=== PATIENT | male | born 1935 | race Caucasian/White ===

== ENCOUNTER 2017-02-14 11:12 | Inpatient (IN) | payer MEDICARE, OTHER ==
--- NOTE | 2017-02-14 11:26 | EDPHY ---
H & P Time Seen by Provider: 02/14/17 11:22 HPI/ROS: CHIEF COMPLAINT: Shortness of breath HISTORY OF PRESENT ILLNESS: 81-year-old male with history of congestive heart failure presents with shortness of breath. Gradually increasing shortness of breath over the past 2 weeks. The shortness of breath increases with exertion and with supine positioning. Associated with nocturia. He is now short of breath with walking from his bed to his bathroom. No chest pain or chest pressure. 5 weeks ago his medications were changed and he is now taking losartan a baby aspirin and Coreg. No change in leg swelling. 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 Florence Smoking Status: Current every day smoker Physical Exam: General Appearance: Alert, pleasant, oxygen saturation 95% on 5 L by nasal cannula Eyes: Pupils equal and round, no conjunctival pallor or injection ENT, Mouth: Mucous membranes moist, tongue dark discoloration Neck: Normal inspection Respiratory: tachypneic, rales at the bases Cardiovascular: Regular rate and rhythm, occasional ectopic beat Gastrointestinal: Abdomen is soft and nontender Neurological: A&O, nonfocal exam Skin: Warm and dry, no rash Extremities: Nontender, no pedal edema Psychiatric: Mood and affect normal Constitutional: Initial Vital Signs Temperature (C) 36.6 C 02/14/17 11:15 Heart Rate 88 02/14/17 11:15 Respiratory Rate 16 02/14/17 11:15 Blood Pressure 149/95 H 02/14/17 11:15 O2 Sat (%) 79 L 02/14/17 11:15 O2 Delivery Mode Nasal Cannula O2 (L/minute) 4 Allergies/Adverse Reactions: No Known Allergies Allergy (Verified 02/14/17 11:38) Home Medications: Medication Instructions Recorded Aspirin [Aspirin 81mg (*)] 81 mg PO DAILY #0 tab 06/13/14 Carvedilol [Coreg (*)] 3.125 mg PO BIDMEAL #60 tab 06/13/14 Losartan Potassium [Cozaar 50 mg 50 mg PO DAILY #30 tab 06/13/14 (*)] Ibuprofen [Motrin (*)] 200 mg PO Q4-6PRN PRN 02/14/17 Omeprazole [Prilosec 20 mg] 20 mg PO DAILY 02/14/17 Medical Decision Making - Diagnostics EKG Interpretation: EKG interpreted by me reveals normal sinus rhythm, rate 90, left bundle branch block, PVC. Imaging Results: Imaging Impressions Chest X-Ray 02/14/17 11:39 Impression: 1. Mild fluid overload suspected. 2. Calcified bilateral pleural plaques. ED Course/Re-evaluation: This patient presents with severe hypoxia and shortness of breath, secondary to pulmonary edema. Old records reviewed. Prior admission in 2013: congestive heart failure with an ejection fraction of 20%. Chest x-ray reveals pulmonary edema. Lasix 40 mg IV given for acute exacerbation of CHF. There is no evidence of pneumonia or pulmonary embolism on history or physical exam. He also has a slightly elevated troponin, in the indeterminate range. EKG reveals a left bundle branch block and there is no evidence of ischemia. He remained fairly asymptomatic after being placed on oxygen. The hospitalist service was consulted for admission. He will be admitted to telemetry for acute exacerbation of congestive heart failure. Differential Diagnosis: Differential diagnosis includes though it is not limited to pneumonia, pneumothorax, pulmonary embolism, aortic dissection, pericarditis, acute coronary syndrome. - Data Points Laboratory Results: Laboratory Results 02/14/17 11:40 02/14/17 11:40 02/14/17 02/14/17 02/14/17 11:40 11:40 11:30 WBC 11.37 10^3/uL H 10^3/uL (3.80-9.50) RBC 4.56 10^6/uL 10^6/uL (4.40-6.38) Hgb 16.0 g/dL g/dL (13.7-17.5) Hct 45.8 % % (40.0-51.0) MCV 100.4 fL H fL (81.5-99.8) MCH 35.1 pg H pg (27.9-34.1) MCHC 34.9 g/dL g/dL (32.4-36.7) RDW 12.5 % % (11.5-15.2) Plt Count 338 10^3/uL 10^3/uL (150-400) MPV 9.5 fL fL (8.7-11.7) Neut % (Auto) 71.0 % % (39.3-74.2) Lymph % (Auto) 15.1 % % (15.0-45.0) [place] % (Auto) 11.2 % % (4.5-13.0) Eos % (Auto) 1.7 % % (0.6-7.6) Baso % (Auto) 0.6 % % (0.3-1.7) Nucleat RBC Rel Count 0.0 % % (0.0-0.2) Absolute Neuts (auto) 8.07 10^3/uL H 10^3/uL (1.70-6.50) Absolute Lymphs (auto) 1.72 10^3/uL 10^3/uL (1.00-3.00) Absolute Monos (auto) 1.27 10^3/uL H 10^3/uL (0.30-0.80) Absolute Eos (auto) 0.19 10^3/uL 10^3/uL (0.03-0.40) Absolute Basos (auto) 0.07 10^3/uL 10^3/uL (0.02-0.10) Absolute Nucleated RBC 0.00 10^3/uL 10^3/uL (0-0.01) Immature Gran % 0.4 % % (0.0-1.1) Immature Gran # 0.05 10^3/uL 10^3/uL (0.00-0.10) Sodium 147 mEq/L H mEq/L (134-144) Potassium 4.4 mEq/L mEq/L (3.5-5.2) Chloride 106 mEq/L mEq/L (97-110) Carbon Dioxide 26 mEq/l mEq/l (22-31) Anion Gap 15 mEq/L mEq/L (8-16) BUN 34 mg/dL H mg/dL (7-23) Creatinine 1.3 mg/dL mg/dL (0.7-1.3) Estimated GFR 53 Glucose 112 mg/dL H mg/dL (70-100) Calcium 9.4 mg/dL mg/dL (8.5-10.4) Phosphorus 4.0 mg/dL mg/dL (2.5-4.5) Magnesium 1.8 mg/dL mg/dL (1.6-2.3) Total Bilirubin 0.8 mg/dL mg/dL (0.1-1.4) Conjugated Bilirubin 0.3 mg/dL mg/dL (0.0-0.5) Unconjugated Bilirubin 0.5 mg/dL mg/dL (0.0-1.1) AST 26 IU/L IU/L (17-59) ALT 31 IU/L IU/L (21-72) Alkaline Phosphatase 96 IU/L IU/L (38-126) Troponin I 0.063 ng/mL H ng/mL (0.000-0.034) NT-Pro-B Natriuret Pep 7060 pg/mL H pg/mL (0-450) Total Protein 7.5 g/dL g/dL (6.3-8.2) Albumin 3.9 g/dL g/dL (3.5-5.0) Medications Given: Discontinued Medications Furosemide (Lasix Injection) 40 mg IVP EDNOW ONE Stop: 02/14/17 12:22 Last Admin: 02/14/17 12:34 Dose: 40 mg Departure - [facility] Clinical Impression: Acute exacerbation of congestive heart failure Qualifiers: Congestive heart failure type: systolic Qualified Code(s): I50.23 - Acute on chronic systolic (congestive) heart failure Condition: Fair
--- NOTE | 2017-02-14 11:29 | CPEKG ---
Heart Rate: 90 RR Interval: 667 P-R Interval: 208 QRSD Interval: 130 QT Interval: 392 QTC Interval: 480 P [place]: 51 QRS [place]: -11 T Wave [place]: 145 EKG Severity - ABNORMAL ECG - EKG Impression: SINUS RHYTHM EKG Impression: VENTRICULAR PREMATURE COMPLEX EKG Impression: LEFT BUNDLE BRANCH BLOCK Electronically Signed By: Nehal Arizmendi 14-Feb-2017 14:11:36
[2017-02-14 11:46] LABS: % IMMATURE GRANULYOCYTES 0.4 % (0.0-1.1); ABSOLUTE IMMATURE GRANULOCYTES 0.05 10^3/uL (0.00-0.10); ADD DIFF? NO; ADD MORPH? NO; ADD SCAN? NO; ATYPICAL LYMPHOCYTE FLAG 10 (0-99); FRAGMENT RBC FLAG 0 (0-99); HEMATOCRIT 45.8 % (40.0-51.0); LEFT SHIFT FLG 0 (0-99); LIPEMIA HEMOLYSIS FLAG 90 (0-99); MEAN CELL HEMOGLOBIN 35.1 pg (27.9-34.1); MEAN CELL HEMOGLOBIN CONCENTR. 34.9 g/dL (32.4-36.7); MEAN CELL VOLUME 100.4 fL (81.5-99.8); MEAN PLATELET VOLUME 9.5 fL (8.7-11.7); PLATELET CLUMPS FLAG 10 (0-99); PLATELET COUNT 338 10^3/uL (150-400); RED BLOOD CELL COUNT 4.56 10^6/uL (4.40-6.38); RED CELL DISTRIBUTION WIDTH 12.5 % (11.5-15.2)
[2017-02-14 11:56] LABS: ANION GAP 15 mEq/L (8-16); CALCIUM 9.4 mg/dL (8.5-10.4); CARBON DIOXIDE 26 mEq/l (22-31); CHLORIDE 106 mEq/L (97-110); CREATININE 1.3 mg/dL (0.7-1.3); GLOMERULAR FILTRATION RATE 53; GLUCOSE 112 mg/dL (70-100); POTASSIUM 4.4 mEq/L (3.5-5.2); SODIUM 147 mEq/L (134-144)
[2017-02-14 12:07] LABS: TROPONIN I 0.063 ng/mL (0.000-0.034)
[2017-02-14] MEDS ORDERED: FUROSEMIDE 40 MG/4 ML VIAL IVP ONE (12:21)
[2017-02-14] MEDS ORDERED: ONDANSETRON 4 MG/2 ML VIAL IVP PRN (13:06)
[2017-02-14] MEDS ORDERED: ACETAMINOPHEN 325 MG TAB PO PRN (13:06)
[2017-02-14] MEDS ORDERED: ONDANSETRON DISINTEGRATING 4 MG TAB PO PRN (13:06)
--- NOTE | 2017-02-14 13:41 | ASMTCASEMG ---
Living Arrangements What is your living Answers: Alone arrangement? Who do you live with? Type Of Residence What kind of residence do Answers: Apartment you live in? Stairs in Home Answers: No Environment Case Management Evaluation Functional: Able to Answers: No return Home with Prior Level of Function/Care Functional: ADL / IADL Answers: Chronic Illness Performance Deficits Due to: Financial Needs Answers: Inability to Pay for Needed Care/Meds/Equipment Under-insured Discharge Plan Comments Coordination Status Comments Notes: The pt is an 81- year old male with a history of congestive heart failure. He presented in the ED with shortness of breath. Pt. was friendly and cooperative but struggled to speak. He is accompanied by his son Jay. Jay reported that the pt. lives alone in an apartment with no stairs. He is very routine oriented and he uses his walker to walk 8 minutes to the local bar every day. Jay reported that he has friends at the bar and there is an arrangement for him to have only two drinks and something to eat during the day. He indicated that the routine has helped to significantly reduce the pt.s alcohol use over the last 12 months. Jay expressed concern about payment for the inpatient stay and treatment; the pt. is in the [place] on a [place] card and he does not have insurance. The insurance in the system is not valid. The pt. does not use community resources but is open to home assistance if need be and if insurance can be acquired. Pt. services informed of the situation and spoke the pt. and his son to assist with next steps. MARIO LOPEZ CM to follow. Date Signed: 02/14/2017 01:40 PM Electronically Signed By:Deborah Pro LCSW
[2017-02-14] MEDS ORDERED: LORazepam 1 MG TAB PO PRN (14:09)
[2017-02-14 14:22] LABS: ALBUMIN 3.9 g/dL (3.5-5.0); BILIRUBIN,TOTAL 0.8 mg/dL (0.1-1.4); BILIRUBIN-CONJUGATED 0.3 mg/dL (0.0-0.5); BILIRUBIN-UNCONJUGATED 0.5 mg/dL (0.0-1.1); MAGNESIUM 1.8 mg/dL (1.6-2.3); TOTAL PROTEIN 7.5 g/dL (6.3-8.2)
[2017-02-14] MEDS ORDERED: NICOTINE 14 MG/24 HR PATCH TD SCH (14:45)
--- NOTE | 2017-02-14 15:09 | GHP ---
[f rep st] HISTORY AND PHYSICAL DATE OF ADMISSION: 02/14/2017 CHIEF COMPLAINT: Hypoxia, CHF exacerbation. HISTORY OF PRESENT ILLNESS: An 81-year-old male with history of nonischemic cardiomyopathy, alcohol dependence, left bundle branch block, and prostate cancer, presenting with shortness of breath. Part of history is obtained from his son, who is accompanying patient at bedside. Patient last saw Cardiology 5 weeks ago, and was doing fairly well. Over the last 5 weeks, he has noticed increased shortness of breath, specifically with exertion. He can barely walk to the restroom now, with having to catch his breath. Uses 2 pillows at baseline; this has not changed. Positive PND, difficulty sleeping. Has had mild swelling in his legs and his abdomen. Per his son, he has noticed that his chest has been heaving with breathing, even at rest over the past week. He has put on 28 pounds in the last 18 months. Patient denies chest pain. No fevers, chills, or sweats. Has a chronic cough that is nonproductive. Still smoking cigarettes. No nausea, vomiting, diarrhea. Intermittent hot flashes. Drinks 2 glasses of wine a day. 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 Florence. REVIEW OF SYSTEMS: I completed a 10-point review of systems. Negative, except as noted in HPI. PAST MEDICAL HISTORY: 1. Nonischemic cardiomyopathy. Echocardiogram 06/03/2014 shows an EF of 25%. Catheterization, 2014, shows no CAD. 2. Left bundle branch block. 3. PUD. 4. Hiatal hernia. 5. DJD. 6. Prostate cancer, status post XRT. 7. Alcohol dependence. 8. Tobacco abuse. 9. Hypertension. 10. TIA. PAST SURGICAL HISTORY: Cataract, basal cell cancer removal. SOCIAL HISTORY: Lives in an apartment here in [place]. His son manages his finances. Drinks 2 glasses of wine. Per son, he was a heavy drinker previously , and he does monitor the amount of alcohol he drinks now. He has smoked most of his life, now smoking 7-8 cigarettes a day. Does smoke a pipe. FAMILY HISTORY: Mother with diabetes. Father age 59 with heart disease. HOME MEDICATIONS: Cozaar 50 mg daily, Coreg 3.125 mg b.i.d., aspirin 81 mg, omeprazole 20 mg daily, ibuprofen as needed. PHYSICAL EXAMINATION: VITAL SIGNS: Temperature 36.6, blood pressure 149/95, heart rate is in the 80s, respirations 16, 79% on room air, 95% on 4 L. GENERAL : Lying in bed, no acute distress. HEENT: PERRLA. EOMI. Jamal face. CV: Regular rate and rhythm. +1 edema, ankles. JVD elevated to mandible. LUNGS: Decreased breath sounds at bases. Crackles bilaterally. ABDOMEN: Mildly distended, soft, nontender, nondistended. Positive bowel sounds. : No Schneider. MUSCULOSKELETAL: 5/5 upper and lower extremity strength. NEURO: 2 through 12 intact. PSYCH: Alert and oriented x3. LABORATORY DATA: WBC is 11, hemoglobin 16, hematocrit 45, platelets 338, MCV is 100. Sodium 147, potassium 4.4, chloride 106, carbon dioxide 26, BUN 16, creatinine 1.3, baseline is 0.9, calcium 9.4. Phos and magnesium are pending. LFTs pending. Troponin 0.063. BNP is 7060. EKG was personally reviewed by me. Left bundle branch block, which is old. Chest x-ray was personally reviewed by me. Diffuse, bilateral pulmonary edema. ASSESSMENT AND PLAN: 1. Acute systolic heart failure exacerbation: evidence of volume overload on exam as well as BNP and chest x-ray. Check echocardiogram. Received IV Lasix in the emergency room; will continue this. We will contact Cardiology; is a patient of Dr. Florence. Low-sodium diet. Monitor I's and O's. Continue low- dose Coreg and aspirin, ARB. 2. History of prostate cancer, status post radiation. 3. Peptic ulcer disease. Continue Prilosec. 4. Alcohol dependence. Drinks 2 drinks a night. We will place on CIWA. 5. Tobacco abuse. Nicotine patch. 6. JOSE: cardiorenal. Monitor with diuresis 7. Indeterminate trop: no CP. Likely due to heart failure 8. NI-CMD: due to etoh. Plan as above. 6. Diet: Cardiac, low sodium. 7. Deep venous thrombosis prophylaxis with Lovenox. 8. Disposition: Patient warrants inpatient admission, given acute systolic heart failure exacerbation, warranting intravenous diuresis, electrolyte monitoring, and telemetry. /[id number]/MODL MTDD
--- NOTE | 2017-02-14 15:56 | PDMN ---
Medical Necessity Medical necessity: est los>2m for acute CHF exacerbation, warranting IV diuresis , electrolyte monitoring, tele and CIWA for etoh dependence; hxPUD, prostate CA ; per order and H&P 02/14/17
--- NOTE | 2017-02-14 16:41 | ECHO ---
[email or web address] [address] [address] Main: [phone] Fax: Transthoracic Echocardiogram Name: CELIA BOBO MR#: [id number] Study Date: 02/14/2017 Study Time: 02:32 PM Date of : 1935 Age: 81 year(s) Height: 177.8 cm (70 in.) Weight: 88 kg (194 lb.) BSA: 2.06 m2 Gender: Male Examination: Echo Indication: Hypoxia, Volume Overload, NI-CDM Image Quality: Contrast: Requested by: Katelyn Perez BP: 149 mmHg/88 mmHg Heart Rate: Rhythm: Indication: Hypoxia, Volume Overload, NI-CDM Procedure Staff Hot Strip Finisher: Roman Moses Reading Physician: Jt Florence Requesting Provider: Measurements: Chambers Valvular Assessment AV/MV Valvular Assessment TV/PV Normal Normal Normal Name Value Range Name Value Range Name Value Range Ao Monse (MM): 3.7 cm (2.2 cm-3.7 AV Vmax: 1.33 m/s (1 m/s-1.7 PV Vmax: 0.65 m/s (0.6 m/s-0.9 cm) m/s) m/s) IVSd (2D): 1.2 cm (0.6 cm-1.1 AV maxP mmHg ( - ) PV PGmax: 2 mmHg ( - ) cm) LVOT Vmax: 0.65 m/s (0.7 m/s-1.1 LVDd (2D): 4.9 cm (4.2 cm-5.9 m/s) cm) MV E Vmax: 0.40 m/s ( - ) LVDs (2D): 4.0 cm (2.1 cm-4 MV A Vmax: 0.85 m/s ( - ) cm) MV E/A: 0.47 ( - ) LVPWd (2D): 1.3 cm (0.6 cm-1 cm) LVEF (MM): 35 (>=55 %) EF Range: 35-40 % Continued Measurements: Chambers Name Value LADs Lon.0 cm LA Area: 22.1 cm2 LA Volume: 68 ml LA Volume Index: 33.0 ml/m2 Findings: Left Ventricle: Normal size left ventricle. Moderately reduced systolic LV function. There is a LBBB. The ejection Patient: CELIA BOBO Study Date: 02/14/2017 Page 1 of 2 02:32 PM fraction is estimated to be 35-40 %. Right Ventricle: Mildly to moderately dilated right ventricle. Moderately to severely reduced right ventricular function. There is a moderator band noted in the right ventricle. Left Atrium: The left atrium is normal in size. Right Atrium: The right atrium is normal in size. Mitral Valve: The mitral valve is normal in appearance and function. There is no mitral valve regurgitation. Aortic Valve: Mild aortic cusp calcification is noted. There is no aortic valve regurgitation. Tricuspid Valve: The tricuspid valve appears normal. There is no tricuspid valve regurgitation. Pulmonic Valve: The pulmonic valve is normal in appearance and function. Trivial pulmonic valve regurgitation. Aorta: The aorta is normal. Pericardium: No pericardial effusion. (No Signature Object) Patient: CELIA BOBO Study Date: 02/14/2017 Page 2 of 2 02:32 PM [id number]
--- NOTE | 2017-02-14 16:49 | PDMN ---
Medical Necessity Medical necessity: C/M review: Patient meets INPT criteria under MCG M-190 Heart failure; Acute CHF exacerbation, acute and persistent shortness of breath , 79% room air sat, positive PND, WBC 11.37, troponin 0.063, BNP 7060, BUN 34, Na 147, requiring planned Cardiology consult, echocardiogram, ongoing IV Lasix BID, cardiac monitoring, pulse oximetry, new O2 requirement 6-4L/min, acute inpt OT, comorbid nonischemic cardiomyopathy, 06/03/2014 echocardiogram EF 25%, LBBB, peptic ulcer disease, hiatal hernia, degenerative joint disease, prostate cnacer S/P radiation therapy, alcohol dependence, hypertension, hc tobacco abuse , TIA. anticipates > 2 MN LOS for ongoing med nec for eval and TX of above.
[2017-02-14] MEDS: CARVEDILOL 3.125 MG TAB PO SCH (17:50)
[2017-02-14] MEDS ORDERED: IPRATROPIUM/ALBUTEROL 3 ML DEYVIAL IH PRN (18:03)
--- NOTE | 2017-02-14 18:06 | PDCARCONS ---
Cardiology Consult Reason for Consult: Shortness of breath Chief Complaint: Shortness of breath Requesting Physician: Chris History of Present Illness: 81-year-old male well known to me history of a nonischemic dilated cardiomyopathy. Angiogram in 2014 revealed no coronary artery disease with LV dysfunction. His ejection fraction has been stable at 40%. Etiology of his myopathy is felt to be alcohol. He is a chronic smoker and continues to use alcohol regularly. Patient complains of several week history of progressive exertional shortness of breath, dating and shortness of breath at rest. He has mild PND and orthopnea. He was admitted through the emergency department. I am asked to see him for decompensated heart failure. He has had no angina. He denies syncope near syncope. He has had no palpitations. Past medical history significant for alcohol abuse History of ejection fraction of 40% secondary to alcohol and hypertension. History of peptic ulcer disease. History of TIA. Cardiac Risk includes ongoing tobacco abuse. History Information - Allergies/Home Medication List Allergies/Adverse Reactions: No Known Allergies Allergy (Verified 02/14/17 11:38) Home Medications: Ibuprofen [Motrin (*)] 200 mg PO Q4-6PRN PRN 02/14/17 [Last Taken Unknown] Omeprazole [Prilosec 20 mg] 20 mg PO DAILY 02/14/17 [Last Taken Unknown] Past Medical History: - Social History Smoking Status: Current every day smoker Physical Exam Physical Exam: Temp Pulse Resp BP Pulse Ox 36.8 C 72 17 132/87 H 95 02/14/17 14:21 02/14/17 17:50 02/14/17 14:21 02/14/17 17:50 02/14/17 14:21 O2 (L/minute) 4 Constitutional: chronically ill appearing Eyes: anicteric sclera Ears, Nose, Mouth, Throat: poor dentition Cardiovascular: regular rate and rhythym, JVD, pulses symmetric bilaterally Peripheral Pulses: 1+: carotid (R), carotid (L), femoral (R), femoral (L), dorsalis-pedis (R), dorsalis-pedis (L) Respiratory: reduced air movement, expiratory wheeze, inspiratory crackles, respiratory distress, rhonchi Gastrointestinal: normoactive bowel sounds, soft, non-tender abdomen, no palpable masses Genitourinary: no bladder fullness Skin: warm, normal color, other (Ecchymotic) Musculoskeletal: no muscle tenderness Neurologic: AAOx3, No facial droop Psychiatric: interacting appropriately, not anxious Lymph, Heme, Immunologic: no cervical LAD, no supraclavicular LAD Lab and Imaging 02/14/17 11:40 02/14/17 11:40 WBC 11.37 10^3/uL (3.80-9.50) H 02/14/17 11:40 RBC 4.56 10^6/uL (4.40-6.38) 02/14/17 11:40 Hgb 16.0 g/dL (13.7-17.5) 02/14/17 11:40 Hct 45.8 % (40.0-51.0) 02/14/17 11:40 MCV 100.4 fL (81.5-99.8) H 02/14/17 11:40 MCH 35.1 pg (27.9-34.1) H 02/14/17 11:40 MCHC 34.9 g/dL (32.4-36.7) 02/14/17 11:40 RDW 12.5 % (11.5-15.2) 02/14/17 11:40 Plt Count 338 10^3/uL (150-400) 02/14/17 11:40 MPV 9.5 fL (8.7-11.7) 02/14/17 11:40 Neut % (Auto) 71.0 % (39.3-74.2) 02/14/17 11:40 Lymph % (Auto) 15.1 % (15.0-45.0) 02/14/17 11:40 [place] % (Auto) 11.2 % (4.5-13.0) 02/14/17 11:40 Eos % (Auto) 1.7 % (0.6-7.6) 02/14/17 11:40 Baso % (Auto) 0.6 % (0.3-1.7) 02/14/17 11:40 Nucleat RBC Rel Count 0.0 % (0.0-0.2) 02/14/17 11:40 Absolute Neuts (auto) 8.07 10^3/uL (1.70-6.50) H 02/14/17 11:40 Absolute Lymphs (auto) 1.72 10^3/uL (1.00-3.00) 02/14/17 11:40 Absolute Monos (auto) 1.27 10^3/uL (0.30-0.80) H 02/14/17 11:40 Absolute Eos (auto) 0.19 10^3/uL (0.03-0.40) 02/14/17 11:40 Absolute Basos (auto) 0.07 10^3/uL (0.02-0.10) 02/14/17 11:40 Absolute Nucleated RBC 0.00 10^3/uL (0-0.01) 02/14/17 11:40 Immature Gran % 0.4 % (0.0-1.1) 02/14/17 11:40 Immature Gran # 0.05 10^3/uL (0.00-0.10) 02/14/17 11:40 Sodium 147 mEq/L (134-144) H 02/14/17 11:40 Potassium 4.4 mEq/L (3.5-5.2) 02/14/17 11:40 Chloride 106 mEq/L (97-110) 02/14/17 11:40 Carbon Dioxide 26 mEq/l (22-31) 02/14/17 11:40 Anion Gap 15 mEq/L (8-16) 02/14/17 11:40 BUN 34 mg/dL (7-23) H 02/14/17 11:40 Creatinine 1.3 mg/dL (0.7-1.3) 02/14/17 11:40 Estimated GFR 53 02/14/17 11:40 Glucose 112 mg/dL (70-100) H 02/14/17 11:40 Calcium 9.4 mg/dL (8.5-10.4) 02/14/17 11:40 Phosphorus 4.0 mg/dL (2.5-4.5) 02/14/17 11:30 Magnesium 1.8 mg/dL (1.6-2.3) 02/14/17 11:30 Total Bilirubin 0.8 mg/dL (0.1-1.4) 02/14/17 11:30 Conjugated Bilirubin 0.3 mg/dL (0.0-0.5) 02/14/17 11:30 Unconjugated Bilirubin 0.5 mg/dL (0.0-1.1) 02/14/17 11:30 AST 26 IU/L (17-59) 02/14/17 11:30 ALT 31 IU/L (21-72) 02/14/17 11:30 Alkaline Phosphatase 96 IU/L (38-126) 02/14/17 11:30 Troponin I 0.064 ng/mL (0.000-0.034) H 02/14/17 17:22 NT-Pro-B Natriuret Pep 7060 pg/mL (0-450) H 02/14/17 11:40 Total Protein 7.5 g/dL (6.3-8.2) 02/14/17 11:30 Albumin 3.9 g/dL (3.5-5.0) 02/14/17 11:30 Laboratory Tests 02/14/17 02/14/17 11:40 17:22 Troponin I 0.063 H 0.064 H NT-Pro-B Natriuret Pep 7060 H Ambulatory Orders Aspirin [Aspirin 81mg (*)] 81 mg PO DAILY #0 tab 06/13/14 Carvedilol [Coreg (*)] 3.125 mg PO BIDMEAL #60 tab 06/13/14 Losartan Potassium [Cozaar 50 mg (*)] 50 mg PO DAILY #30 tab 06/13/14 Ibuprofen [Motrin (*)] 200 mg PO Q4-6PRN PRN 02/14/17 Omeprazole [Prilosec 20 mg] 20 mg PO DAILY 02/14/17 Interpretation: Chest x-ray reveals mild cephalization, cardiomegaly EKG additional interpertation: Sinus rhythm with first-degree AV block, left bundle branch block. Echocardiogram: Echocardiogram revealed severe RV dysfunction. Left ventricular function 35-40 % unchanged from prior study. Left bundle branch block pattern noted with septal dyskinesis. A/P Assessment: 1. Acute systolic heart failure with biventricular failure right greater than left. 2. Likely COPD exacerbation as etiology. 3. Alcoholic cardiomyopathy with ongoing alcoholism. 4. Ongoing tobacco abuse. 5. Hypertension. Impression 81-year-old male admitted with one-week history of decompensated in biventricular heart failure. Likely in the setting of COPD exacerbation based on clinical history. Nonsteroidal anti inflammatory drugs are also likely contributing some. At this point the patient is relatively comfortable though having difficulty breathing. Vital signs are stable. Recommendations are for aggressive diuresis. Beta agonists for COPD. Likely need for outpatient diuretic therapy. Continue beta-raphael/ARB. Careful attention to avoid alcohol withdrawal. Smoking cessation strongly recommended. Nicotine patch in the short term. Avoid chronic nonsteroidal anti inflammatory drugs. Review of Systems Review of Systems: - Review of Systems Constitutional: malaise. denies: chills, fever EENTM: no symptoms reported Respiratory: cough, shortness of breath, wheezing Cardiac: edema. denies: chest pain, irregular heart rate, lightheadedness, palpitations, syncope Gastrointestinal/Abdominal: no symptoms reported Genitourinary: no symptoms Musculoskelatal: no symptoms Skin: no symptoms Neurological: no symptoms Hematologic/Lymphatic: no symptoms reported Immunologic/allergic: no symptoms reported Past Medical History PMH: - Personal History Current Tetanus/Diphtheria Vaccine: Yes Current Tetanus Diphtheria and Acellular Pertussis (TDAP): Yes Tetanus Vaccine Date: 2015 - Medical/Surgical History Hx Asthma: No Hx Chronic Respiratory Disease: No Hx Cardiac Disease: Yes Hx Diabetes: No Hx Renal Disease: No Hx Alcoholism: Yes Hx Cirrhosis: No Hx HIV/AIDS: No Hx Splenectomy or Spleen Trauma: No Other PMH: HTN, prostate CA, spine degeneration, lung shadow, catarac removal bilaterally. etoh abuse. CHF - Social History Smoking Status: Current every day smoker Tobacco Use: Less than 1 pack/day Alcohol Use: Heavy Additional Social History:
[2017-02-14] MEDS: NICOTINE 21 MG/24 HR PATCH TD SCH (18:32)
[2017-02-14] MEDS: MELATONIN 3 MG TAB PO PRN (21:41)
[2017-02-14] MEDS: RED WINE 120 ML BOTTLE PO SCH (23:53)
[2017-02-15 05:02] LABS: HEMATOCRIT 44.6 % (40.0-51.0); HEMOGLOBIN 14.3 g/dL (13.7-17.5); MEAN CELL HEMOGLOBIN 33.5 pg (27.9-34.1); MEAN CELL HEMOGLOBIN CONCENTR. 32.1 g/dL (32.4-36.7); MEAN CELL VOLUME 104.4 fL (81.5-99.8); RED BLOOD CELL COUNT 4.27 10^6/uL (4.40-6.38); RED CELL DISTRIBUTION WIDTH 12.5 % (11.5-15.2)
[2017-02-15 05:21] LABS: ANION GAP 12 mEq/L (8-16); CALCIUM 8.9 mg/dL (8.5-10.4); CARBON DIOXIDE 30 mEq/l (22-31); CHLORIDE 103 mEq/L (97-110); GLOMERULAR FILTRATION RATE > 60; GLUCOSE 100 mg/dL (70-100); POTASSIUM 4.3 mEq/L (3.5-5.2); SODIUM 145 mEq/L (134-144)
[2017-02-15] MEDS: FUROSEMIDE 40 MG/4 ML VIAL IVP SCH ×2 (08:19→16:09)
[2017-02-15] MEDS: NICOTINE 21 MG/24 HR PATCH TD SCH (08:19)
[2017-02-15] MEDS: CARVEDILOL 3.125 MG TAB PO SCH ×2 (08:20→17:39)
[2017-02-15] MEDS: PANTOPRAZOLE SODIUM 40 MG TAB PO SCH (08:20)
[2017-02-15] MEDS: LOSARTAN POTASSIUM 50 MG TAB PO SCH (08:20)
[2017-02-15] MEDS: ASPIRIN 81 MG CHEWABLE TAB PO SCH (08:21)
[2017-02-15] MEDS: ENOXAPARIN 40 MG/0.4 ML SYR SC SCH (08:23)
--- NOTE | 2017-02-15 08:37 | HOSPPROG ---
Hospitalist Progress Note Assessment/Plan: #Acutely decompensated Bi-V HF: (RHF new): cont aggressive diuresis, BB, ARB #Indeterminate trop: no CP. No ischemic eval needed now #JOSE: cardiorenal. Improved with diuresis #Etoh dependence: Wine with meals #Tobacco abuse: nicotine patch #NI-CDM: due to Etoh. Diuresis as above #LBBB: chronic #PUD: PPI #Acute hypoxic resp failure: due to CHF. h/o significant tobacco #DVT ppx: Lovenox #Diet: cardiac #Disp: inpatient admission for IV diuresis, telemetry Subjective: less SOB today Objective: Vital Signs Temp Pulse Resp BP Pulse Ox 36.6 C 77 18 137/73 H 94 02/15/17 08:00 02/15/17 08:20 02/15/17 08:00 02/15/17 08:20 02/15/17 08:00 Laboratory Results 02/15/17 04:04 02/15/17 04:04 02/14/17 02/15/17 02/16/17 05:59 05:59 04:59 Intake Total 325 Output Total 700 Balance -375 ICD10 Worksheet Patient Problems: Problems Problem Status Onset Acute exacerbation of congestive heart failure Acute Cardiomyopathy, dilated Acute Left bundle branch block Acute Syncope Acute TIA (transient ischemic attack) Acute
[2017-02-15] MEDS ORDERED: NON-FORMULARY NEW DRUG (Omeprazole [Prilosec 20 Mg] 20 MG) PO SCH (09:00)
[2017-02-15] MEDS ORDERED: LOSARTAN POTASSIUM 50 MG TAB PO SCH (09:00)
[2017-02-15] MEDS: RED WINE 120 ML BOTTLE PO SCH ×3 (10:20→22:06)
--- NOTE | 2017-02-15 10:33 | SOAPPROG ---
SOAP Progress Note Assessment/Plan: Assessment: 1. Acute systolic heart failure with biventricular failure right greater than left. 2. COPD exacerbation as etiology. 3. Alcoholic cardiomyopathy with ongoing alcoholism. 4. Ongoing tobacco abuse. 5. Hypertension. Procedure: 2016 Echocardiogram. 02/15/17 10:30 Impression: Hospital day 1. Diuresing well overnight. Improvement in shortness of breath, PND, orthopnea but clearly not at baseline. No signs or symptoms of alcohol withdrawal. Tolerating not smoking well. Recommendations: Continue IV diuresis. Continue aggressive pulmonary toilet. Not yet ready to transition to oral medications. No indications for further cardiac risk stratification at this point. Subjective: Feeling better, no chest pain, persistent shortness of breath cough and wheezing. No syncope or near syncope. Objective: Medications Generic Name Dose Route Start Last Admin Trade Name Freq PRN Reason Stop Dose Admin Wine 120 ml 02/14/17 22:00 02/15/17 10:20 Red Wine PO 08/13/17 21:59 120 ml TID STEPHANI Albuterol/Ipratropium 3 ml 02/14/17 18:03 02/15/17 01:54 Duoneb IH 08/13/17 18:02 3 ml Q6HRS PRN Short of Breath/Dyspnea Aspirin 81 mg 02/15/17 09:00 02/15/17 08:21 Aspirin PO 08/14/17 08:59 81 mg DAILY [facility] Carvedilol 3.125 mg 02/14/17 18:00 02/15/17 08:20 Coreg PO 08/13/17 17:59 3.125 mg BIDMEAL [facility] Enoxaparin Sodium 40 mg 02/15/17 09:00 02/15/17 08:23 Lovenox SC 08/14/17 08:59 40 mg DAILY STEPHANI Furosemide 40 mg 02/15/17 09:00 02/15/17 08:19 Lasix Injection IVP 08/14/17 08:59 40 mg BID@0900,1500 STEPHANI Lorazepam 1 mg 02/14/17 14:09 Ativan PO 08/13/17 14:08 Q4HRS PRN Agitation if able to take PO Losartan Potassium 50 mg 02/15/17 09:00 02/15/17 08:20 Cozaar PO 08/14/17 08:59 50 mg DAILY [facility] Melatonin 3 mg 02/14/17 18:03 02/14/17 21:41 Melatonin PO 08/13/17 18:02 3 mg HS PRN Sleep/Insomnia Nicotine 21 mg 02/14/17 18:15 02/15/17 08:19 Nicoderm Cq TD 08/13/17 18:14 21 mg DAILY STEPHANI Vital Signs Temp Pulse Resp BP Pulse Ox 36.6 C 77 18 137/73 H 94 02/15/17 08:00 02/15/17 08:20 02/15/17 08:00 02/15/17 08:20 02/15/17 08:00 Laboratory Results 02/15/17 04:04 02/15/17 04:04 02/14/17 02/15/17 02/16/17 05:59 05:59 04:59 Intake Total 325 Output Total 700 Balance -375 Physical Exam - Physical Exam General Appearance: no apparent distress, cachetic EENT: No scleral icterus (R), No scleral icterus (L) Neck: non-tender Respiratory: decreased breath sounds, rhonchi, wheezing Cardiac/Chest: regular rate, rhythm, No gallop Abdomen: normal bowel sounds, non-tender, soft Skin: warm/dry Neuro/Psych: no motor/sensory deficits, alert, normal mood/affect ICD10 Worksheet Patient Problems: Problems Problem Status Onset Syncope Acute TIA (transient ischemic attack) Acute Cardiomyopathy, dilated Acute Left bundle branch block Acute Acute exacerbation of congestive heart failure Acute Review of Systems - Review of Systems Constitutional: denies: chills, fever EENTM: no symptoms reported Respiratory: cough, shortness of breath, wheezing Cardiac: denies: chest pain, irregular heart rate, lightheadedness, palpitations , syncope Gastrointestinal/Abdominal: denies: abdominal pain, abdominal distention, constipation, diarrhea Genitourinary: no symptoms Musculoskelatal: no symptoms Skin: no symptoms
[2017-02-15] MEDS: MELATONIN 3 MG TAB PO PRN (22:05)
[2017-02-16 04:26] LABS: HEMATOCRIT 44.5 % (40.0-51.0); HEMOGLOBIN 14.8 g/dL (13.7-17.5); MEAN CELL HEMOGLOBIN CONCENTR. 33.3 g/dL (32.4-36.7); MEAN CELL VOLUME 102.3 fL (81.5-99.8); RED BLOOD CELL COUNT 4.35 10^6/uL (4.40-6.38); RED CELL DISTRIBUTION WIDTH 12.2 % (11.5-15.2)
[2017-02-16 04:39] LABS: ANION GAP 8 mEq/L (8-16); CARBON DIOXIDE 36 mEq/l (22-31); CHLORIDE 100 mEq/L (97-110); CREATININE 1.1 mg/dL (0.7-1.3); GLOMERULAR FILTRATION RATE > 60; GLUCOSE 96 mg/dL (70-100); POTASSIUM 4.2 mEq/L (3.5-5.2); SODIUM 144 mEq/L (134-144)
--- NOTE | 2017-02-16 08:15 | HOSPPROG ---
Hospitalist Progress Note Assessment/Plan: #Acutely decompensated Bi-V HF: (RHF new): cont aggressive diuresis, BB, ARB #Indeterminate trop: no CP. No ischemic eval needed now #JOSE: cardiorenal. Improved with diuresis #Etoh dependence: Wine with meals #Tobacco abuse: nicotine patch #NI-CDM: due to Etoh. Diuresis as above #LBBB: chronic #PUD: PPI #h/o falls: related Etoh in past. Uses walker. PT/OT #Deconditioning: may need SNF at [place] #Acute hypoxic resp failure: due to CHF. h/o significant tobacco/COPD. Add short pred burst, nebs #DVT ppx: Lovenox #Diet: cardiac #Disp: inpatient admission for IV diuresis, telemetry. I discussed plan with his son, Ed, on phone Subjective: still SOB with exertion, but improved Objective: Vital Signs Temp Pulse Resp BP Pulse Ox 36.8 C 66 18 135/66 H 92 02/16/17 04:00 02/16/17 04:00 02/16/17 04:00 02/16/17 04:00 02/16/17 04:00 Laboratory Results 02/16/17 04:02 02/16/17 04:02 02/15/17 02/16/17 02/17/17 06:59 05:59 05:59 Intake Total Output Total Balance - Physical Exam Constitutional: no apparent distress Eyes: PERRL Ears, Nose, Mouth, Throat: other (enrico cheeks) Cardiovascular: regular rate and rhythym, JVD (improved), No edema (LE edema resolved) Respiratory: other (decreased BS, mild wheezes) Gastrointestinal: normoactive bowel sounds Genitourinary: no bladder fullness Skin: warm Musculoskeletal: full muscle strength Neurologic: AAOx3 Psychiatric: interacting appropriately ICD10 Worksheet Patient Problems: Problems Problem Status Onset Acute exacerbation of congestive heart failure Acute Cardiomyopathy, dilated Acute Left bundle branch block Acute Syncope Acute TIA (transient ischemic attack) Acute
[2017-02-16] MEDS: FUROSEMIDE 40 MG/4 ML VIAL IVP SCH ×2 (08:48→15:40)
[2017-02-16] MEDS: NICOTINE 21 MG/24 HR PATCH TD SCH (08:48)
[2017-02-16] MEDS: ASPIRIN 81 MG CHEWABLE TAB PO SCH (08:48)
[2017-02-16] MEDS: PANTOPRAZOLE SODIUM 40 MG TAB PO SCH (08:48)
[2017-02-16] MEDS: LOSARTAN POTASSIUM 50 MG TAB PO SCH (08:48)
[2017-02-16] MEDS: CARVEDILOL 3.125 MG TAB PO SCH ×2 (08:48→17:20)
[2017-02-16] MEDS: ENOXAPARIN 40 MG/0.4 ML SYR SC SCH (08:49)
[2017-02-16] MEDS: RED WINE 120 ML BOTTLE PO SCH ×3 (08:49→21:29)
--- NOTE | 2017-02-16 10:08 | SOAPPROG ---
SOAP Progress Note Assessment/Plan: Assessment: 1. Acute systolic heart failure with biventricular failure right greater than left. 2. COPD exacerbation as etiology. 3. Alcoholic cardiomyopathy with ongoing alcoholism. 4. Ongoing tobacco abuse. 5. Hypertension. Procedure: 2016 Echocardiogram. 02/16/17 10:06 Impression: Hospital day 2. Stable hemodynamics. Continued slow improvement in shortness of breath and PND. No signs of alcohol withdrawal on 3 time a day wine. Exam suggest significant component of COPD exacerbation with persistent expiratory wheezing. Recommendations: Continue IV diuresis. Consider steroid taper for underlying COPD. OT/PT. 02/15/17 10:30 Impression: Hospital day 1. Diuresing well overnight. Improvement in shortness of breath, PND, orthopnea but clearly not at baseline. No signs or symptoms of alcohol withdrawal. Tolerating not smoking well. Recommendations: Continue IV diuresis. Continue aggressive pulmonary toilet. Not yet ready to transition to oral medications. No indications for further cardiac risk stratification at this point. Subjective: Feeling a little better. Still short of breath. Able to lay flat. No palpitations, syncope, near syncope. Objective: Vital Signs Temp Pulse Resp BP Pulse Ox 37.1 C 75 16 116/67 92 02/16/17 08:00 02/16/17 08:00 02/16/17 08:00 02/16/17 08:00 02/16/17 08:00 Laboratory Results 02/16/17 04:02 02/16/17 04:02 02/15/17 02/16/17 02/17/17 06:59 05:59 05:59 Intake Total Output Total 100 Balance -100 Physical Exam - Physical Exam General Appearance: alert, no apparent distress Neck: supple Respiratory: rhonchi, wheezing Cardiac/Chest: regular rate, rhythm Skin: normal color, warm/dry Extremities: No pedal edema Neuro/Psych: no motor/sensory deficits, alert ICD10 Worksheet Patient Problems: Problems Problem Status Onset Syncope Acute TIA (transient ischemic attack) Acute Cardiomyopathy, dilated Acute Left bundle branch block Acute Acute exacerbation of congestive heart failure Acute
[2017-02-16] MEDS: predniSONE 20 MG TAB PO SCH (11:01)
[2017-02-16] MEDS: IPRATROPIUM/ALBUTEROL 3 ML DEYVIAL IH SCH ×3 (12:08→23:33)
[2017-02-17 05:17] LABS: HEMOGLOBIN 14.1 g/dL (13.7-17.5); MEAN CELL HEMOGLOBIN 33.6 pg (27.9-34.1); MEAN CELL HEMOGLOBIN CONCENTR. 33.6 g/dL (32.4-36.7); RED BLOOD CELL COUNT 4.2 10^6/uL (4.40-6.38); RED CELL DISTRIBUTION WIDTH 12.1 % (11.5-15.2)
[2017-02-17] MEDS: IPRATROPIUM/ALBUTEROL 3 ML DEYVIAL IH SCH ×4 (05:30→23:04)
[2017-02-17 05:37] LABS: ANION GAP 12 mEq/L (8-16); CALCIUM 9.2 mg/dL (8.5-10.4); CARBON DIOXIDE 30 mEq/l (22-31); CHLORIDE 99 mEq/L (97-110); CREATININE 1.2 mg/dL (0.7-1.3); GLOMERULAR FILTRATION RATE 58; GLUCOSE 111 mg/dL (70-100); POTASSIUM 3.8 mEq/L (3.5-5.2); SODIUM 141 mEq/L (134-144)
[2017-02-17] MEDS: FUROSEMIDE 40 MG/4 ML VIAL IVP SCH ×2 (09:15→16:13)
[2017-02-17] MEDS: LOSARTAN POTASSIUM 50 MG TAB PO SCH (09:15)
[2017-02-17] MEDS: CARVEDILOL 3.125 MG TAB PO SCH ×2 (09:15→17:25)
[2017-02-17] MEDS: PANTOPRAZOLE SODIUM 40 MG TAB PO SCH (09:15)
[2017-02-17] MEDS: predniSONE 20 MG TAB PO SCH (09:15)
[2017-02-17] MEDS: ASPIRIN 81 MG CHEWABLE TAB PO SCH (09:15)
[2017-02-17] MEDS: NICOTINE 21 MG/24 HR PATCH TD SCH (09:15)
[2017-02-17] MEDS: ENOXAPARIN 40 MG/0.4 ML SYR SC SCH (09:15)
--- NOTE | 2017-02-17 09:26 | HOSPPROG ---
Hospitalist Progress Note Assessment/Plan: #Acutely decompensated Bi-V HF: (RHF new): cont aggressive diuresis, BB, ARB #Indeterminate trop: no CP. No ischemic eval needed now #Mild ALI: Cr 1.2. Monitor closely with diuresis #Etoh dependence: Wine with meals #Tobacco abuse: nicotine patch #NI-CDM: due to Etoh. Diuresis as above #LBBB: chronic #PUD: PPI #h/o falls: related Etoh in past. Uses walker. PT/OT #Deconditioning: may need SNF at [place] #Acute hypoxic resp failure: due to CHF. h/o significant tobacco/COPD. Add short pred burst, nebs #DVT ppx: Lovenox #Diet: cardiac #Disp: inpatient admission for IV diuresis, telemetry. I discussed plan with his son, Ed, on phone Subjective: less SOB Objective: Vital Signs Temp Pulse Resp BP Pulse Ox 37.0 C 58 L 18 115/63 83 L 02/17/17 08:00 02/17/17 08:00 02/17/17 08:00 02/17/17 08:00 02/17/17 08:25 Laboratory Results 02/17/17 04:35 02/17/17 04:35 02/16/17 02/17/17 02/18/17 05:59 05:59 05:59 Intake Total 400 Output Total 550 Balance -150 - Physical Exam Constitutional: no apparent distress Eyes: PERRL Ears, Nose, Mouth, Throat: moist mucous membranes Cardiovascular: regular rate and rhythym, edema (no LE edema, min JVD) Respiratory: reduced air movement (BL bases, min exp wheezes) Genitourinary: no bladder fullness Skin: warm Musculoskeletal: full muscle strength Neurologic: AAOx3 Psychiatric: interacting appropriately ICD10 Worksheet Patient Problems: Problems Problem Status Onset Acute exacerbation of congestive heart failure Acute Cardiomyopathy, dilated Acute Left bundle branch block Acute Syncope Acute TIA (transient ischemic attack) Acute
[2017-02-17] MEDS ORDERED: LACTULOSE 20 GM/30 ML UDCUP PO PRN (09:59)
[2017-02-17] MEDS ORDERED: BISACODYL 10 MG SUPP PR PRN (09:59)
[2017-02-17] MEDS ORDERED: MAGNESIUM HYDROXIDE 30 ML UDCUP PO PRN (09:59)
[2017-02-17] MEDS ORDERED: POLYETHYLENE GLYCOL 3350 17 GM PKT PO PRN (09:59)
--- NOTE | 2017-02-17 10:02 | PDCARPN ---
Cardiology Progress Note Assessment/Plan: Assessment: First time seeing patient. Taking over from Jt Florence MD 1. Acute systolic heart failure with biventricular failure right greater than left. Improvement with diuresis--weight-loss Admit 84 Kg today 76.8 Kg 2. COPD exacerbation as etiology. 3. Alcoholic cardiomyopathy with ongoing alcoholism.-- Managing well with Wine with meals. 4. Ongoing tobacco abuse. 5. Hypertension. BP has gone down from admit 140/88 today 115/63 Plan: 02/17/17 10:03 Reviewed/Discussed With: hospitalist Objective: Vital Signs (8 Hrs) Temp Pulse Resp BP Pulse Ox 02/17/17 08:25 83 L 02/17/17 08:00 37.0 C 58 L 18 115/63 90 L 02/17/17 05:30 73 10 L 92 02/17/17 03:57 36.6 C 74 16 140/88 H 97 Intake/Output (24 Hrs) 02/16/17 02/17/17 02/18/17 05:59 05:59 05:59 Intake Total 400 Output Total 550 Balance -150 Intake: Oral (ml) 400 Output: Urine (ml) 550 Incontinence 450 Urinal 100 Other: Weight 76.8 kg Number of Voids Incontinence 2 Urinal Result Diagrams: 02/17/17 04:35 02/18/17 03:53 Cardiac Labs: Cardiac Lab Results (72 Hrs) 02/14/17 17:22 Troponin I 0.064 H - Physical Exam Constitutional: WDWN Cardiovascular: regular rate and rhythm, other (paced) Respiratory: no crackles, no wheezes, reduced air movement Neurologic: AAOx3 Psychiatric: cooperative, interactive ICD10 Worksheet Patient Problems: Problems Problem Status Onset Acute exacerbation of congestive heart failure Acute Cardiomyopathy, dilated Acute Left bundle branch block Acute Syncope Acute TIA (transient ischemic attack) Acute
[2017-02-17] MEDS: RED WINE 120 ML BOTTLE PO SCH ×4 (13:30→20:29)
--- NOTE | 2017-02-17 16:44 | ASMTCMCOM ---
CM Note CM Note Notes: PT recommending HHC, OT recommending HHC vs SNF. Pt here from [place] on green card therefor HHC services could be difficult to obtain unless done by [facility]. Sam has seen pt and applied for emergency [facility]. Met w/pt to discuss and he does not feel he will need HHC services. He lives in apt building w/elevator and says his son and daughter marcel live in same apt complex. He tells me of good friend support as well. Will see how pt progresses to determine if it will be safe for him to dc home without services. Will also try to discuss w/son. FLAQUITA w/f. Date Signed: 02/17/2017 04:43 PM Electronically Signed By:Aurora Cunningham RN
[2017-02-17] MEDS: SENNOSIDES/DOCUSATE SODIUM TAB PO SCH (20:30)
[2017-02-18 05:05] LABS: ANION GAP 14 mEq/L (8-16); CALCIUM 9.2 mg/dL (8.5-10.4); CARBON DIOXIDE 31 mEq/l (22-31); CHLORIDE 96 mEq/L (97-110); CREATININE 1.1 mg/dL (0.7-1.3); GLOMERULAR FILTRATION RATE > 60; GLUCOSE 107 mg/dL (70-100); POTASSIUM 3.7 mEq/L (3.5-5.2); SODIUM 141 mEq/L (134-144)
[2017-02-18] MEDS: IPRATROPIUM/ALBUTEROL 3 ML DEYVIAL IH SCH ×4 (05:08→22:46)
[2017-02-18] MEDS: NICOTINE 21 MG/24 HR PATCH TD SCH (08:08)
[2017-02-18] MEDS: predniSONE 20 MG TAB PO SCH (08:08)
[2017-02-18] MEDS: SENNOSIDES/DOCUSATE SODIUM TAB PO SCH ×2 (08:08→22:46)
[2017-02-18] MEDS: ENOXAPARIN 40 MG/0.4 ML SYR SC SCH (08:08)
[2017-02-18] MEDS: LOSARTAN POTASSIUM 50 MG TAB PO SCH (08:08)
[2017-02-18] MEDS: ASPIRIN 81 MG CHEWABLE TAB PO SCH (08:09)
[2017-02-18] MEDS: FUROSEMIDE 40 MG/4 ML VIAL IVP SCH ×2 (08:09→14:29)
[2017-02-18] MEDS: PANTOPRAZOLE SODIUM 40 MG TAB PO SCH (08:09)
[2017-02-18] MEDS: CARVEDILOL 3.125 MG TAB PO SCH ×2 (08:09→17:38)
[2017-02-18] MEDS: RED WINE 120 ML BOTTLE PO SCH ×3 (08:13→22:47)
--- NOTE | 2017-02-18 15:40 | HOSPPROG ---
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 #. Acute systolic heart failure with biventricular failure right greater than left. Has been here for several days for diuresis and has had significant weight loss noted. Previous evaluation has included an angiogram in 2015 nonobstructive disease. * Continue medical management of his congestive heart failure * Still not at baseline on supplemental oxygen * Continue IV Lasix until evidence of renal dysfunction currently creatinine has been stable #. COPD, acute exacerbation * Continue steroids will start slow taper down to 30 mg today * Continue nebulizers * Personally reviewed admitting chest x-ray which showed fluid overload and bilateral pleural plaques * Low threshold for re-chest x-ray #. Alcoholic cardiomyopathy with ongoing alcoholism, patient really has no intention of discontinuing alcohol use * Continue to manage withdrawal with ongoing alcohol use currently having 3 glasses of wine per day #. Tobacco use #. Hypertension: Currently stable #. Indeterminate troponin on admission, no chest pain likely demand mismatch no further ischemic workup #. Left bundle branch block, chronic Subjective: Patient new to me and chart reviewed. Still feels quite weak and not at baseline. Objective: Vital Signs Temp Pulse Resp BP Pulse Ox 36.4 C 84 20 113/80 91 L 02/18/17 15:13 02/18/17 15:13 02/18/17 15:13 02/18/17 15:13 02/18/17 15:13 Laboratory Results 02/17/17 04:35 02/18/17 03:53 02/17/17 02/18/17 02/19/17 05:59 05:59 05:59 Intake Total 400 700 Output Total 550 400 850 Balance -150 300 -850 - Physical Exam Constitutional: no apparent distress, chronically ill appearing, unkempt Eyes: PERRL, EOMI Ears, Nose, Mouth, Throat: moist mucous membranes Cardiovascular: regular rate and rhythym, systolic murmur, edema Respiratory: no respiratory distress, reduced air movement, inspiratory crackles Gastrointestinal: normoactive bowel sounds, soft, non-tender abdomen Genitourinary: no bladder fullness Skin: warm, normal color Musculoskeletal: generalized weakness Psychiatric: interacting appropriately, not anxious ICD10 Worksheet Patient Problems: Problems Problem Status Onset Syncope Acute TIA (transient ischemic attack) Acute Cardiomyopathy, dilated Acute Left bundle branch block Acute Acute exacerbation of congestive heart failure Acute
[2017-02-19] MEDS: IPRATROPIUM/ALBUTEROL 3 ML DEYVIAL IH SCH ×4 (05:45→23:18)
[2017-02-19] MEDS: ENOXAPARIN 40 MG/0.4 ML SYR SC SCH (08:25)
[2017-02-19] MEDS: FUROSEMIDE 40 MG/4 ML VIAL IVP SCH ×2 (08:25→14:29)
[2017-02-19] MEDS: NICOTINE 21 MG/24 HR PATCH TD SCH (08:25)
[2017-02-19] MEDS: CARVEDILOL 3.125 MG TAB PO SCH ×2 (08:26→17:20)
[2017-02-19] MEDS: LOSARTAN POTASSIUM 50 MG TAB PO SCH (08:26)
[2017-02-19] MEDS: PANTOPRAZOLE SODIUM 40 MG TAB PO SCH (08:26)
[2017-02-19] MEDS: ASPIRIN 81 MG CHEWABLE TAB PO SCH (08:26)
[2017-02-19] MEDS: predniSONE 10 MG TAB PO SCH (08:26)
[2017-02-19] MEDS: RED WINE 120 ML BOTTLE PO SCH ×3 (08:32→22:17)
[2017-02-19] MEDS: SENNOSIDES/DOCUSATE SODIUM TAB PO SCH ×2 (08:33→22:17)
--- NOTE | 2017-02-19 12:09 | PDCARPN ---
Cardiology Progress Note Assessment/Plan: Assessment: First time seeing patient. Taking over from Jt Florence MD 1. Acute systolic heart failure with biventricular failure right greater than left. Improvement with diuresis--weight-loss Admit 84 Kg today 76.8 Kg 2. COPD exacerbation as etiology. 3. Alcoholic cardiomyopathy with ongoing alcoholism.-- Managing well with Wine with meals. 4. Ongoing tobacco abuse. 5. Hypertension. BP has gone down from admit 140/88 today 115/63 Plan: Continue with Diureses. Decrease Valsartan to 25 mg QD due to low BP. 02/18/17 10:03 Seen. Continue with diuresis. COPD improved. Alcoholism managed with Wine TID. 02/19/17 12:06 Subjective: He is feeling much better. He can get up in room and is not SOB. Talkative today. He denies Chest pain. Reviewed/Discussed With: hospitalist, multidisciplinary team (RN) Objective: Vital Signs (8 Hrs) Temp Pulse Resp BP Pulse Ox 02/19/17 11:24 36.4 C 72 20 87/60 L 91 L 02/19/17 07:10 36.6 C 65 20 110/69 95 Intake/Output (24 Hrs) 02/18/17 02/19/17 02/20/17 05:59 05:59 05:59 Intake Total 700 1750 Output Total 400 1700 Balance 300 50 Intake: Oral (ml) 700 1750 Output: Urine (ml) 400 1700 Toilet 300 Urinal 400 1400 Other: Weight 77.4 kg 83.234 kg Intake Quantity Yes Sufficient Number of Voids Toilet 2 Urinal 1 Number of Stools Toilet 1 Result Diagrams: 02/17/17 04:35 02/18/17 03:53 - Physical Exam Cardiovascular: regular rate and rhythm, no murmurs, no rubs Peripheral Pulses: 2+: dorsalis-pedis (R), dorsalis-pedis (L) Respiratory: clear to auscultate bilat, no crackles, no wheezes Skin: no rashes, no edema Neurologic: AAOx3 Psychiatric: cooperative, interactive ICD10 Worksheet Patient Problems: Problems Problem Status Onset Acute exacerbation of congestive heart failure Acute Cardiomyopathy, dilated Acute Left bundle branch block Acute Syncope Acute TIA (transient ischemic attack) Acute
[2017-02-19] MEDS ORDERED: LOSARTAN POTASSIUM 50 MG TAB PO SCH (12:33)
--- NOTE | 2017-02-19 14:20 | HOSPPROG ---
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 #. Acute systolic heart failure with biventricular failure right greater than left. Has been here for several days for diuresis and has had significant weight loss noted. Previous evaluation has included an angiogram in 2015 nonobstructive disease. * Continue medical management of his congestive heart failure * Still not at baseline on supplemental oxygen * Continue IV Lasix BID until evidence of renal dysfunction currently creatinine has been stable #. COPD, acute exacerbation * Continue steroids taper, currently at Prednisone 30mg daily * Continue nebulizers * Personally reviewed admitting chest x-ray which showed fluid overload and bilateral pleural plaques * Low threshold for re-chest x-ray #. Alcoholic cardiomyopathy with ongoing alcoholism, patient really has no intention of discontinuing alcohol use * Continue to manage withdrawal with ongoing alcohol use currently having 3 glasses of wine per day #. Tobacco abuse disorder #. Hypertension: Now with some hypotension, will hold Valsartan for now given diuretics #. Indeterminate troponin on admission, no chest pain likely demand mismatch no further ischemic workup #. Left bundle branch block, chronic DVT Proph: Lovenox Dispo: continue inpatient for now. Subjective: drinking a glass of wine. No CP or SOB. Diuresing well. Objective: Vital Signs Temp Pulse Resp BP Pulse Ox 36.4 C 75 20 87/60 L 94 02/19/17 11:24 02/19/17 12:18 02/19/17 12:18 02/19/17 11:24 02/19/17 12:18 Laboratory Results 02/17/17 04:35 02/18/17 03:53 02/18/17 02/19/17 02/20/17 05:59 05:59 05:59 Intake Total 700 1750 Output Total 400 1700 275 Balance 300 50 -275 - Physical Exam Constitutional: no apparent distress Eyes: PERRL Ears, Nose, Mouth, Throat: moist mucous membranes Cardiovascular: regular rate and rhythym Respiratory: no respiratory distress, No clear to auscultation Gastrointestinal: normoactive bowel sounds Skin: warm Neurologic: AAOx3 Psychiatric: interacting appropriately ICD10 Worksheet Patient Problems: Problems Problem Status Onset Acute exacerbation of congestive heart failure Acute Cardiomyopathy, dilated Acute Left bundle branch block Acute Syncope Acute TIA (transient ischemic attack) Acute
[2017-02-19] MEDS: MELATONIN 3 MG TAB PO PRN (22:16)
[2017-02-20] MEDS: IPRATROPIUM/ALBUTEROL 3 ML DEYVIAL IH SCH ×3 (05:26→17:15)
[2017-02-20 06:06] LABS: % IMMATURE GRANULYOCYTES 0.6 % (0.0-1.1); ABSOLUTE IMMATURE GRANULOCYTES 0.07 10^3/uL (0.00-0.10); ADD DIFF? NO; ADD MORPH? NO; ADD SCAN? NO; ATYPICAL LYMPHOCYTE FLAG 10 (0-99); FRAGMENT RBC FLAG 0 (0-99); HEMOGLOBIN 13.9 g/dL (13.7-17.5); LEFT SHIFT FLG 0 (0-99); LIPEMIA HEMOLYSIS FLAG 90 (0-99); MEAN CELL HEMOGLOBIN 33.8 pg (27.9-34.1); MEAN CELL HEMOGLOBIN CONCENTR. 34.8 g/dL (32.4-36.7); MEAN CELL VOLUME 97.3 fL (81.5-99.8); PLATELET CLUMPS FLAG 10 (0-99); PLATELET COUNT 312 10^3/uL (150-400); RED BLOOD CELL COUNT 4.11 10^6/uL (4.40-6.38); RED CELL DISTRIBUTION WIDTH 12.4 % (11.5-15.2)
[2017-02-20 06:12] LABS: ANION GAP 11 mEq/L (8-16); CARBON DIOXIDE 33 mEq/l (22-31); CHLORIDE 92 mEq/L (97-110); CREATININE 1.1 mg/dL (0.7-1.3); GLOMERULAR FILTRATION RATE > 60; GLUCOSE 98 mg/dL (70-100); POTASSIUM 3.8 mEq/L (3.5-5.2); SODIUM 136 mEq/L (134-144)
[2017-02-20] MEDS: NICOTINE 21 MG/24 HR PATCH TD SCH (08:23)
[2017-02-20] MEDS: ENOXAPARIN 40 MG/0.4 ML SYR SC SCH (08:23)
[2017-02-20] MEDS: FUROSEMIDE 40 MG/4 ML VIAL IVP SCH ×2 (08:23→15:22)
[2017-02-20] MEDS: predniSONE 10 MG TAB PO SCH (08:24)
[2017-02-20] MEDS: SENNOSIDES/DOCUSATE SODIUM TAB PO SCH (08:25)
[2017-02-20] MEDS: ASPIRIN 81 MG CHEWABLE TAB PO SCH (08:25)
[2017-02-20] MEDS: CARVEDILOL 3.125 MG TAB PO SCH ×2 (08:25→17:09)
[2017-02-20] MEDS: PANTOPRAZOLE SODIUM 40 MG TAB PO SCH (08:25)
[2017-02-20] MEDS: RED WINE 120 ML BOTTLE PO SCH ×2 (08:30→15:22)
--- NOTE | 2017-02-20 11:06 | ASMTCMCOM ---
CM Note CM Note Notes: Case Management Note on 02/19/17 Met w/pt to discuss insurance coverage for post discharge care. Pt lives in apartment below son. Returns to [place] for short stays to renew visa to return to the [place]. Pt refuses home care support, feels that son is able to provide necessary supports. Pt daughter in law is having surgery today at [facility] and will be admitted overnight. Pt walks to restaurant owned by a friend everyday in [place]. Provided resources for [facility] and [facility] for follow up care. Case Management d/c poc: home with family support when medically stable with follow up at [facility] or [facility]. Date Signed: 02/20/2017 11:05 AM Electronically Signed By:WASHINGTON Alvarenga
--- NOTE | 2017-02-20 13:12 | HOSPPROG ---
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 #. Acute systolic heart failure with biventricular failure right greater than left. Has been here for several days for diuresis and has had significant weight loss noted, although the most recent weights and I/O's shows increased weight and + balance. Previous evaluation has included an angiogram in 2015 nonobstructive disease. * Continue medical management of his congestive heart failure * Still not at baseline on supplemental oxygen which is not supplemental use * Continue IV Lasix until evidence of renal dysfunction currently creatinine has been stable. I think his volume status is improving and would consider changing to once daily per Cards * Check BNP in a.m. * check CXR in a.m. #. COPD, acute exacerbation * Continue steroids taper, currently at Prednisone 30mg daily * Continue nebulizers * Personally reviewed admitting chest x-ray which showed fluid overload and bilateral pleural plaques #. Alcoholic cardiomyopathy with ongoing alcoholism, patient really has no intention of discontinuing alcohol use * Continue to manage withdrawal with ongoing alcohol use currently having 3 glasses of wine per day #. Tobacco abuse disorder #. Hypertension: Now with some hypotension, will hold Valsartan for now given diuretics #. Indeterminate troponin on admission, no chest pain likely demand mismatch no further ischemic workup #. Left bundle branch block, chronic DVT Proph: Hipolito Dispo: continue inpatient for now. Would like to transition towards discharge possibly in the next few days. Subjective: Still on supplemental O2. Feels better. Less leg swelling Objective: Vital Signs Temp Pulse Resp BP Pulse Ox 36.4 C 68 14 104/56 L 92 02/20/17 11:41 02/20/17 12:15 02/20/17 12:15 02/20/17 11:41 02/20/17 12:15 Laboratory Results 02/20/17 05:45 02/20/17 05:45 02/19/17 02/20/17 02/21/17 05:59 05:59 05:59 Intake Total 1750 1890 Output Total 1700 850 Balance 50 1040 - Physical Exam Constitutional: chronically ill appearing Eyes: PERRL, EOMI Ears, Nose, Mouth, Throat: moist mucous membranes, hearing normal Cardiovascular: regular rate and rhythym, edema Respiratory: no respiratory distress, reduced air movement Gastrointestinal: normoactive bowel sounds, soft, non-tender abdomen Genitourinary: no bladder fullness Skin: warm Neurologic: AAOx3 Psychiatric: interacting appropriately, not anxious, not encephalopathic ICD10 Worksheet Patient Problems: Problems Problem Status Onset Acute exacerbation of congestive heart failure Acute Cardiomyopathy, dilated Acute Left bundle branch block Acute Syncope Acute TIA (transient ischemic attack) Acute
--- NOTE | 2017-02-20 15:58 | PDCARPN ---
Cardiology Progress Note Assessment/Plan: Assessment: First time seeing patient. Taking over from Jt Florence MD 1. Acute systolic heart failure with biventricular failure right greater than left. Improvement with diuresis--weight-loss Admit 84 Kg today 76.8 Kg 2. COPD exacerbation as etiology. 3. Alcoholic cardiomyopathy with ongoing alcoholism.-- Managing well with Wine with meals. 4. Ongoing tobacco abuse. 5. Hypertension. BP has gone down from admit 140/88 today 115/63 Plan: Continue with Diureses. Decrease Valsartan to 25 mg QD due to low BP. 02/18/17 10:03 Seen. Continue with diuresis. COPD improved. Alcoholism managed with Wine TID. 02/19/17 12:06 Hypotensive agree with decrease dose of Valsartan to QD. Tolerating Diuresis well. Continue with Lasix IV for now. 02/20/17 15:39 CHF improvement with aggressive diuresis. CXR today shows no Fluid overload. Agree with one dose Lasix IV today. Kidney functions have remained stable....Cr 1.1, BUN today 57, GFR >60. Transition to oral Lasix tomorrow. HYPOTENSIVE today 96/66, 104/56. Valsartan on hold for now. COPD---Oxygen supplementation continues to be needed. Steroid Taper. Today decreased Oxygen to 1L and his O2Sat when to 88%. Will continue to attempt to wean down on oxygen. 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 No intentions to cease alcohol intake. He continues to get Wine with meals. Living Arrangement is in his own apartment, with his Son and [id number] in the Apt above his. His son helps him in his home, and he reports his needs are taken care of in this way. Subjective: Up in his chair today. Will get a shower. He is very talkative today and states he is feeling much better, and not having any trouble breathing. He does need the supplemental oxygen. Objective: Vital Signs (8 Hrs) Temp Pulse Resp BP Pulse Ox 02/20/17 12:15 68 14 92 02/20/17 11:41 36.4 C 72 14 104/56 L 92 02/20/17 08:25 73 96/66 L Intake/Output (24 Hrs) 02/19/17 02/20/17 02/21/17 05:59 05:59 05:59 Intake Total 1750 1890 250 Output Total 1700 850 250 Balance 50 1040 0 Intake: Oral (ml) 1750 1890 250 Output: Urine (ml) 1700 850 250 Toilet 300 250 Urinal 1400 600 250 Other: Weight 83.234 kg 84.1 kg Intake Quantity Yes Sufficient Number of Voids Toilet 2 Urinal 1 Result Diagrams: 02/20/17 05:45 02/20/17 05:45 - Physical Exam Constitutional: no apparent distress Cardiovascular: regular rate and rhythm, no murmurs Peripheral Pulses: 2+: dorsalis-pedis (R), dorsalis-pedis (L) Respiratory: clear to auscultate bilat, no crackles, no wheezes Skin: warm, no edema Neurologic: AAOx3 Psychiatric: cooperative, interactive ICD10 Worksheet Patient Problems: Problems Problem Status Onset Acute exacerbation of congestive heart failure Acute Cardiomyopathy, dilated Acute Left bundle branch block Acute Syncope Acute TIA (transient ischemic attack) Acute
[2017-02-20] MEDS ORDERED: PNEUMOC 13-VAL CONJ-DIP CRM/PF 0.5 ML SYR IM ONE (16:41)
[2017-02-20] MEDS ORDERED: FLU VACC QS 2017-18 (3YR+)/PF 0.5 ML SYR (FLUARIX QUAD) IM ONE (16:41)
[2017-02-21] MEDS: IPRATROPIUM/ALBUTEROL 3 ML DEYVIAL IH SCH ×5 (00:17→22:05)
[2017-02-21] MEDS: RED WINE 120 ML BOTTLE PO SCH ×4 (01:20→18:11)
[2017-02-21] MEDS: SENNOSIDES/DOCUSATE SODIUM TAB PO SCH ×3 (01:20→20:14)
[2017-02-21 05:36] LABS: ANION GAP 12 mEq/L (8-16); CARBON DIOXIDE 34 mEq/l (22-31); CHLORIDE 91 mEq/L (97-110); CREATININE 1.1 mg/dL (0.7-1.3); GLOMERULAR FILTRATION RATE > 60; GLUCOSE 93 mg/dL (70-100); POTASSIUM 3.9 mEq/L (3.5-5.2); SODIUM 137 mEq/L (134-144)
[2017-02-21] MEDS: NICOTINE 21 MG/24 HR PATCH TD SCH (08:12)
[2017-02-21] MEDS: ENOXAPARIN 40 MG/0.4 ML SYR SC SCH (08:13)
[2017-02-21] MEDS: ASPIRIN 81 MG CHEWABLE TAB PO SCH (08:14)
[2017-02-21] MEDS: PANTOPRAZOLE SODIUM 40 MG TAB PO SCH (08:14)
[2017-02-21] MEDS: predniSONE 10 MG TAB PO SCH (08:15)
[2017-02-21] MEDS: CARVEDILOL 3.125 MG TAB PO SCH ×2 (08:15→17:50)
[2017-02-21] MEDS: FUROSEMIDE 40 MG TAB PO SCH ×2 (08:15→15:24)
--- NOTE | 2017-02-21 12:08 | HOSPPROG ---
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 #. Acute systolic heart failure with biventricular failure right greater than left. Has been here for several days for diuresis and has had significant weight loss noted Previous evaluation has included an angiogram in 2015 nonobstructive disease. * Continue medical management of his congestive heart failure * Still not at baseline on supplemental oxygen which is not supplemental use * changed to PO Lasix BID today * BUN has been increasing, will recheck mid day to determine diuretics going forward * CXR shows improvement, personally reviewed #. COPD, acute exacerbation * Continue steroids taper, currently at Prednisone 30mg daily * Continue nebulizers #. Alcoholic cardiomyopathy with ongoing alcoholism, patient really has no intention of discontinuing alcohol use * Continue to manage withdrawal with ongoing alcohol use currently having 3 glasses of wine per day #. Tobacco abuse disorder #. Hypertension: If BMP is ok, can restart Valsartan today at 20mg daily #. Indeterminate troponin on admission, no chest pain likely demand mismatch no further ischemic workup #. Left bundle branch block, chronic DVT Proph: Lovenox Dispo: d/c possibly tomorrow Subjective: no cp or SOB. Still requiring supplemental O2. afebrile. Now on PO Lasix Objective: Vital Signs Temp Pulse Resp BP Pulse Ox 36.8 C 71 16 111/64 97 02/21/17 10:42 02/21/17 11:22 02/21/17 11:22 02/21/17 10:42 02/21/17 11:22 Laboratory Results 02/20/17 05:45 02/20/17 02/21/17 02/22/17 05:59 05:59 05:59 Intake Total 1890 1950 240 Output Total 850 600 650 Balance 1040 1350 -410 - Physical Exam Constitutional: no apparent distress Eyes: PERRL, EOMI Ears, Nose, Mouth, Throat: moist mucous membranes, hearing normal Cardiovascular: regular rate and rhythym, edema Respiratory: no respiratory distress, reduced air movement Gastrointestinal: normoactive bowel sounds, soft, non-tender abdomen Skin: warm Neurologic: AAOx3 Psychiatric: interacting appropriately, not anxious, not encephalopathic ICD10 Worksheet Patient Problems: Problems Problem Status Onset Acute exacerbation of congestive heart failure Acute Cardiomyopathy, dilated Acute Left bundle branch block Acute Syncope Acute TIA (transient ischemic attack) Acute
[2017-02-21 12:43] LABS: ANION GAP 12 mEq/L (8-16); CALCIUM 9.2 mg/dL (8.5-10.4); CARBON DIOXIDE 32 mEq/l (22-31); CHLORIDE 92 mEq/L (97-110); GLOMERULAR FILTRATION RATE > 60; GLUCOSE 123 mg/dL (70-100); POTASSIUM 4.3 mEq/L (3.5-5.2); SODIUM 136 mEq/L (134-144)
--- NOTE | 2017-02-21 15:46 | PDCARPN ---
Cardiology Progress Note Assessment/Plan: Assessment: First time seeing patient. Taking over from Jt Florence MD 1. Acute systolic heart failure with biventricular failure right greater than left. Improvement with diuresis--weight-loss Admit 84 Kg today 76.8 Kg 2. COPD exacerbation as etiology. 3. Alcoholic cardiomyopathy with ongoing alcoholism.-- Managing well with Wine with meals. 4. Ongoing tobacco abuse. 5. Hypertension. BP has gone down from admit 140/88 today 115/63 Plan: Continue with Diureses. Decrease Valsartan to 25 mg QD due to low BP. 02/18/17 10:03 Seen. Continue with diuresis. COPD improved. Alcoholism managed with Wine TID. 02/19/17 12:06 Hypotensive agree with decrease dose of Valsartan to QD. Tolerating Diuresis well. Continue with Lasix IV for now. 02/20/17 15:39 CHF improvement with aggressive diuresis. CXR today shows no Fluid overload. Agree with one dose Lasix IV today. Kidney functions have remained stable....Cr 1.1, BUN today 57, GFR >60. Transition to oral Lasix tomorrow. HYPOTENSIVE today 96/66, 104/56. Valsartan on hold for now. COPD---Oxygen supplementation continues to be needed. Steroid Taper. Today decreased Oxygen to 1L and his O2Sat when to 88%. Will continue to attempt to wean down on oxygen. 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 No intentions to cease alcohol intake. He continues to get Wine with meals. Living Arrangement is in his own apartment, with his Son and [id number] in the Apt above his. His son helps him in his home, and he reports his needs are taken care of in this way. 02/21/17 15:45 CHF continues to improve. BNP today Objective: Vital Signs (8 Hrs) Temp Pulse Resp BP Pulse Ox 02/21/17 15:29 36.5 C 77 76 H 101/62 91 L 02/21/17 14:55 80 84 L 02/21/17 11:22 71 16 97 02/21/17 11:20 86 L 02/21/17 10:42 36.8 C 80 22 H 111/64 92 02/21/17 08:00 36.3 C 72 18 133/76 H 92 Intake/Output (24 Hrs) 02/20/17 02/21/17 02/22/17 05:59 05:59 05:59 Intake Total 1890 1950 240 Output Total 850 600 900 Balance 1040 1350 -660 Intake: Oral (ml) 1890 1950 240 Output: Urine (ml) 850 600 900 Toilet 250 150 650 Urinal 600 450 250 Other: Weight 84.1 kg 84.5 kg Number of Voids Incontinence 1 Toilet 2 1 1 Urinal 2 Result Diagrams: 02/20/17 05:45 02/21/17 11:40 ICD10 Worksheet Patient Problems: Problems Problem Status Onset Syncope Acute TIA (transient ischemic attack) Acute Cardiomyopathy, dilated Acute Left bundle branch block Acute Acute exacerbation of congestive heart failure Acute
--- NOTE | 2017-02-21 17:31 | PDCARPN ---
Cardiology Progress Note Assessment/Plan: Assessment: First time seeing patient. Taking over from Jt Florence MD 1. Acute systolic heart failure with biventricular failure right greater than left. Improvement with diuresis--weight-loss Admit 84 Kg today 76.8 Kg 2. COPD exacerbation as etiology. 3. Alcoholic cardiomyopathy with ongoing alcoholism.-- Managing well with Wine with meals. 4. Ongoing tobacco abuse. 5. Hypertension. BP has gone down from admit 140/88 today 115/63 Plan: Continue with Diureses. Decrease Valsartan to 25 mg QD due to low BP. 02/18/17 10:03 Seen. Continue with diuresis. COPD improved. Alcoholism managed with Wine TID. 02/19/17 12:06 Hypotensive agree with decrease dose of Valsartan to QD. Tolerating Diuresis well. Continue with Lasix IV for now. 02/20/17 15:39 CHF improvement with aggressive diuresis. CXR today shows no Fluid overload. Agree with one dose Lasix IV today. Kidney functions have remained stable....Cr 1.1, BUN today 57, GFR >60. Transition to oral Lasix tomorrow. HYPOTENSIVE today 96/66, 104/56. Valsartan on hold for now. COPD---Oxygen supplementation continues to be needed. Steroid Taper. Today decreased Oxygen to 1L and his O2Sat when to 88%. Will continue to attempt to wean down on oxygen. 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 No intentions to cease alcohol intake. He continues to get Wine with meals. Living Arrangement is in his own apartment, with his Son and [id number] in the Apt above his. His son helps him in his home, and he reports his needs are taken care of in this way. 02/21/17 15:45 CHF continues to improve. BNP today 257. BP today 111/64. Lasix 40 mg PO BID today. His Cr 1.0, BUN 48 GFR>60. Recommend decrease Lasix to 40 mg QD. Will sign off at this time. Call if further assistance needed. Follow up at [facility] in 10 days. Subjective: "I am feeling much better today. Have been up walking in room, and with a nurse in the halls." He continues with Wine with meals. He feels he can take care of himself at home. His Son has an apartment above his. Reviewed/Discussed With: hospitalist, multidisciplinary team Time Spent With Patient: 15 minutes Objective: Vital Signs (8 Hrs) Temp Pulse Resp BP Pulse Ox 02/21/17 17:18 79 18 92 02/21/17 15:29 36.5 C 77 76 H 101/62 91 L 02/21/17 14:55 80 84 L 02/21/17 11:22 71 16 97 02/21/17 11:20 86 L 02/21/17 10:42 36.8 C 80 22 H 111/64 92 Intake/Output (24 Hrs) 02/20/17 02/21/17 02/22/17 05:59 05:59 05:59 Intake Total 1890 1950 1700 Output Total 442 600 6425 Balance 1040 1350 0 Intake: Oral (ml) 1890 1950 1700 Output: Urine (ml) 115 104 1077 Toilet 336 052 8506 Urinal 600 450 250 Other: Weight 84.1 kg 84.5 kg Number of Voids Incontinence 1 Toilet 2 1 1 Urinal 2 Result Diagrams: 02/20/17 05:45 02/21/17 11:40 - Physical Exam Constitutional: no apparent distress Cardiovascular: regular rate and rhythm, no murmurs, no rubs Respiratory: clear to auscultate bilat, no crackles, no wheezes Skin: warm, no edema Neurologic: AAOx3 Psychiatric: cooperative, interactive ICD10 Worksheet Patient Problems: Problems Problem Status Onset Acute exacerbation of congestive heart failure Acute Cardiomyopathy, dilated Acute Left bundle branch block Acute Syncope Acute TIA (transient ischemic attack) Acute
[2017-02-21] MEDS: MELATONIN 3 MG TAB PO PRN (22:07)
[2017-02-22 04:59] LABS: ANION GAP 13 mEq/L (8-16); CARBON DIOXIDE 30 mEq/l (22-31); CHLORIDE 94 mEq/L (97-110); CREATININE 1.1 mg/dL (0.7-1.3); GLOMERULAR FILTRATION RATE > 60; GLUCOSE 96 mg/dL (70-100); POTASSIUM 3.8 mEq/L (3.5-5.2); SODIUM 137 mEq/L (134-144)
[2017-02-22] MEDS: IPRATROPIUM/ALBUTEROL 3 ML DEYVIAL IH SCH ×2 (05:42→11:15)
[2017-02-22] MEDS: NICOTINE 21 MG/24 HR PATCH TD SCH (08:22)
[2017-02-22] MEDS: CARVEDILOL 3.125 MG TAB PO SCH ×2 (08:24→16:24)
[2017-02-22] MEDS: SENNOSIDES/DOCUSATE SODIUM TAB PO SCH (08:24)
[2017-02-22] MEDS: PANTOPRAZOLE SODIUM 40 MG TAB PO SCH (08:24)
[2017-02-22] MEDS: ENOXAPARIN 40 MG/0.4 ML SYR SC SCH (08:25)
[2017-02-22] MEDS: ASPIRIN 81 MG CHEWABLE TAB PO SCH (08:25)
[2017-02-22] MEDS ORDERED: predniSONE 10 MG TAB PO SCH (09:00)
[2017-02-22] MEDS ORDERED: FUROSEMIDE 40 MG TAB PO SCH (09:00)
[2017-02-22] MEDS: RED WINE 120 ML BOTTLE PO SCH ×2 (09:05→13:13)
--- NOTE | 2017-02-22 09:34 | CPEKG ---
Heart Rate: 68 RR Interval: 882 P-R Interval: 236 QRSD Interval: 160 QT Interval: 456 QTC Interval: 486 P Palms: 41 QRS Palms: 37 T Wave Palms: -66 EKG Severity - ABNORMAL ECG - EKG Impression: SINUS RHYTHM EKG Impression: MULTIFORM VENTRICULAR PREMATURE COMPLEXES EKG Impression: FIRST DEGREE AV BLOCK EKG Impression: NONSPECIFIC INTRAVENTRICULAR CONDUCTION DELAY EKG Impression: PROBABLE LEFT VENTRICULAR HYPERTROPHY Electronically Signed By: Jatin Tang 22-Feb-2017 10:17:20
[2017-02-22 11:47] VITALS: RESP 17; TEMP 98.1; O2SAT 94
--- NOTE | 2017-02-22 14:48 | PDDCSUM ---
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 He was started on IV diuretics and has diuresed favorably. He has been transitioned to oral diuretics and was monitored overnight. He was started on a steroid taper with good improvement. Unfortunately he is still needing 2 L O2 continuous. He is being set up for home O2. He will complete his steroid taper He is being discharge to home. He lives below his son. He has been cleared and felt to be appropriate for independent living by PT/OT. He refused cardiac rehab. DDX: #. Acute systolic heart failure with biventricular failure right greater than left. Has been here for several days for diuresis and has had significant weight loss noted Previous evaluation has included an angiogram in 2015 nonobstructive disease. * Continue medical management of his congestive heart failure * Lasix 40mg daily #. COPD, acute exacerbation * Continue steroids taper, currently at Prednisone 20mg daily #. Alcoholic cardiomyopathy with ongoing alcoholism #. Tobacco abuse disorder #. Hypertension: #. Indeterminate troponin on admission, no chest pain likely demand mismatch no further ischemic workup #. Left bundle branch block, chronic Discharge Exam: NAD AAOX3 RRR SLIGHT DECREASED LUNG SOUNDS S/NT/ND NO LE EDEMA MEDS: SEE MED REC TOTAL TIME SPENT ON DISCHARGE IS 35 MINUTES
--- NOTE | 2017-02-22 14:49 | PDHOMEO2F ---
Home Oxygen Face to Face Home Orders: I certify that a physician or a nurse practitioner or physician's certified teacher assistant has had a fkbd-ja-negx encounter with this patient on the date of this order due to the diagnosis listed, which relates to the primary reason the patient requires home oxygen. Alternative treatments have been tried, or considered, and deemed ineffective. It is anticipated that supplemental oxygen will result in improvement with treatment. Home oxygen qualifying diagnosis: HYPOXEMIA Frequency of home oxygen needed: continuous I certify that, based on these findings, the home oxygen is medically necessary for this patient for the following length of time.
--- NOTE | 2017-02-22 14:50 | PDHOMEO2F ---
Home Oxygen Face to Face Home Orders: I certify that a physician or a nurse practitioner or physician's lead assistant manager has had a [id number]-xemq encounter with this patient on the date of this order due to the diagnosis listed, which relates to the primary reason the patient requires home oxygen. Alternative treatments have been tried, or considered, and deemed ineffective. It is anticipated that supplemental oxygen will result in improvement with treatment. Home oxygen qualifying diagnosis: HYPOXEMIA SpO2 on room air (%): 86% Frequency of home oxygen needed: continuous Home oxygen liters per minute: 2 Home oxygen delivery device: nasal cannula Concentrator: Yes E-tanks for mobility and back up: No I certify that, based on these findings, the home oxygen is medically necessary for this patient for the following length of time. Length of time home oxygen needed: 99 years
[2017-02-22 16:27] VITALS: BP 122/78; PULSE 97
--- NOTE | 2017-02-22 16:50 | ASDISCHSUM ---
Discharge Information Plan Status:Home with No Needs Medically Cleared to Leave:02/21/2017 Discharge Date:02/22/2017 04:35 PM CM D/C Disposition:Home, Routine, Self-Care ADT D/C Disposition:Home, Routine, Self-Care Projected Discharge Date:02/22/2017 04:35 PM Transportation at D/C:Family Discharge Delay Reason: Follow-Up Date:02/22/2017 04:35 PM Discharge Slot: Final Diagnosis: Placement Information Patient Contact Information Contact Name:CHAPIN Relationship:Son Address:[address] Work Phone: Simon:[facility] Alternate Phone: [facility]/Zip Code:[place] [address] Email: Financial Information Financial Class:HMO and PPO Plans Primary Plan Desc:[facility] Primary Plan Number:[id number] Secondary Plan Desc: Secondary Plan Number: Assessment Information LACE LACE Length of stay for Answers: Less than 1 day current admission Acuity / Level of Care Answers: Was the patient admitted to hospital via the emergency department? Yes: Comorbidities - select Answers: Congestive heart failure all that apply Emergency dept visits in Answers: 2 last 6 months Score: 7 Date Signed: 02/14/2017 11:42 AM Electronically Signed By:Deborah Pro LCSW [facility] Initial CM Assessment Living Arrangements What is your living Answers: Alone arrangement? Who do you live with? Type Of Residence What kind of residence do Answers: Apartment you live in? Stairs in Home Answers: No Environment Case Management Evaluation Functional: Able to Answers: No return Home with Prior Level of Function/Care Functional: ADL / IADL Answers: Chronic Illness Performance Deficits Due to: Financial Needs Answers: Inability to Pay for Needed Care/Meds/Equipment Under-insured Discharge Plan Comments Coordination Status Comments Notes: The pt is an 81- year old male with a history of congestive heart failure. He presented in the ED with shortness of breath. Pt. was friendly and cooperative but struggled to speak. He is accompanied by his son Jay. Jay reported that the pt. lives alone in an apartment with no stairs. He is very routine oriented and he uses his walker to walk 8 minutes to the local bar every day. Jay reported that he has friends at the bar and there is an arrangement for him to have only two drinks and something to eat during the day. He indicated that the routine has helped to significantly reduce the pt.s alcohol use over the last 12 months. Jay expressed concern about payment for the inpatient stay and treatment; the pt. is in the [place] on a [place] card and he does not have insurance. The insurance in the system is not valid. The pt. does not use community resources but is open to home assistance if need be and if insurance can be acquired. Pt. services informed of the situation and spoke the pt. and his son to assist with next steps. MARIO LOPEZ CM to follow. Date Signed: 02/14/2017 01:40 PM Electronically Signed By:Deborah Pro LCSW [facility] FLAQUITA Progress Note CM Note CM Note Notes: PT recommending HHC, OT recommending HHC vs SNF. Pt here from [place] on green card therefor HHC services could be difficult to obtain unless done by [facility]by. Sam has seen pt and applied for emergency [place]. Met w/pt to discuss and he does not feel he will need HHC services. He lives in apt building w/elevator and says his son and daughter marcel live in same apt complex. He tells me of good friend support as well. Will see how pt progresses to determine if it will be safe for him to dc home without services. Will also try to discuss w/son. CM w/f. Date Signed: 02/17/2017 04:43 PM Electronically Signed By:Aurora Cunningham RN [facility] CM Progress Note CM Note CM Note Notes: Case Management Note on 02/19/17 Met w/pt to discuss insurance coverage for post discharge care. Pt lives in apartment below son. Returns to [place] for short stays to renew visa to return to the . Pt refuses home care support, feels that son is able to provide necessary supports. Pt daughter in law is having surgery today at [facility] and will be admitted overnight. Pt walks to restaurant owned by a friend everyday in [place]. Provided resources for [facility] and [facility] for follow up care. Case Management d/c poc: home with family support when medically stable with follow up at [facility] or [facility]. Date Signed: 02/20/2017 11:05 AM Electronically Signed By:WASHINGTON Alvarenga [facility] CM Progress Note CM Note CM Note Notes: 02/22/2017 Case Management Note Spoke with son Jay Hobbs [phone]. [place] expressed upset at pt's d/c. Dayton is leaving town and returning on Friday. He requested hospital keep pt until Friday when he had time to come get him. Case management explained that MD's had d/c pt. Provided info on 04/11 care givers. Dayton felt they were unaffordable. Case Management offered to arrange Home Care but explained that pt or Dayton had to pay out of pocket due to insurance. Dayton declined d/t cost. Offered medical respite beds and explained cost was $165 + per day out of pocket. Dayton declined medical respite beds. Dayton stated that his son (pt grandson) is unavailable to check on pt. Dayton does not want pt to stay at Dayton's apartment with his while he is out of town d/t pt alcohol use and 's recent knee surgery. Dayton expressed upset that hospital MD's provided alcohol during pt stay. Case Management expressed to Dayton that pt is decisional and refusing all services offered by case management at this time. Case management provided pt field service representative information to Dayton. aware of situation and spoke with Dayton as well. Met w/pt. Provided information on [facility] [employer] [facility] program, [facility] as well as [facility]. Pt refused all services or options offered by case management. Case Management spoke w/PT and OT who felt pt is safe to d/c home. Case Management d/c poc: Home with family support when medically stable. Date Signed: 02/22/2017 04:49 PM Electronically Signed By:Suzie Salamanca RN Intervention Information
[2017-02-25] MEDS ORDERED: predniSONE 10 MG TAB PO SCH (09:00)
== END 2017-02-22 16:35 | disposition home or self-care (01) | DRG 291 ==
LOC: F2W 14:47
PROVIDERS: ADMIT Internal Medicine; ATTEND Family Medicine
DX: I50.23 Acute on chronic systolic (congestive) heart failure (principal); I42.6 Alcoholic cardiomyopathy; I11.0 Hypertensive heart disease with heart failure; J96.01 Acute respiratory failure with hypoxia; F10.20 Alcohol dependence, uncomplicated; F17.210 Nicotine dependence, cigarettes, uncomplicated; I44.7 Left bundle-branch block, unspecified; J61 Pneumoconiosis due to asbestos and other mineral fibers; Z86.73 Personal history of transient ischemic attack (TIA), and cerebral infarction without residual deficits; Z85.46 Personal history of malignant neoplasm of prostate; Z23 Encounter for immunization
CPT/HCPCS: 96374; 97116-GP; 97161-GP; 97166-GO; 97530-GP; 97535-GO; G0008; G0009; G8978-GP-CJ; G8979-GP-CI; J1650; J1940

== ENCOUNTER 2017-04-02 18:27 | Inpatient (IN) | payer OTHER ==
[2017-04-02] MEDS ORDERED: NS 500 ML IV ONE (18:30)
[2017-04-02] MEDS ORDERED: ONDANSETRON 4 MG/2 ML VIAL IVP ONE (18:30)
[2017-04-02] MEDS ORDERED: IOPAMIDOL (ISOVUE 370) 100 ML BTL IV ONE (18:36)
[2017-04-02] MEDS ORDERED: NOREPINEPHRINE/NS 4 MG/500 ML BAG IV ONE (18:45)
[2017-04-02] MEDS: NS 1,000 ML IV ONE ×2 (18:46→19:00)
--- NOTE | 2017-04-02 18:51 | CPEKG ---
Heart Rate: 81 RR Interval: 741 P-R Interval: 232 QRSD Interval: 144 QT Interval: 424 QTC Interval: 493 P [place]: 30 QRS [place]: -51 T Wave [place]: 48 EKG Severity - ABNORMAL ECG - EKG Impression: SINUS RHYTHM EKG Impression: FIRST DEGREE AV BLOCK EKG Impression: IVCD, CONSIDER ATYPICAL LBBB Electronically Signed By: Faraz Sanders 02-Apr-2017 22:59:18
[2017-04-02 19:00] LABS: % IMMATURE GRANULYOCYTES 0.6 % (0.0-1.1); ABSOLUTE IMMATURE GRANULOCYTES 0.08 10^3/uL (0.00-0.10); ABSOLUTE NRBC COUNT 0.11 10^3/uL (0-0.01); ADD DIFF? NO; ADD MORPH? NO; ADD SCAN? NO; ATYPICAL LYMPHOCYTE FLAG 20 (0-99); FRAGMENT RBC FLAG 0 (0-99); HEMATOCRIT 49.9 % (40.0-51.0); HEMOGLOBIN 15.9 g/dL (13.7-17.5); LEFT SHIFT FLG 0 (0-99); LIPEMIA HEMOLYSIS FLAG 80 (0-99); MEAN CELL HEMOGLOBIN CONCENTR. 31.9 g/dL (32.4-36.7); MEAN CELL VOLUME 106.6 fL (81.5-99.8); MEAN PLATELET VOLUME 9.6 fL (8.7-11.7); NRBC-AUTO% 0.9 % (0.0-0.2); PLATELET CLUMPS FLAG 0 (0-99); PLATELET COUNT 310 10^3/uL (150-400); RED BLOOD CELL COUNT 4.68 10^6/uL (4.40-6.38); RED CELL DISTRIBUTION WIDTH 14.5 % (11.5-15.2)
[2017-04-02 19:09] LABS: INR 1.16 (0.83-1.16)
[2017-04-02 19:10] LABS: APTT 34.8 SEC (23.0-38.0)
[2017-04-02 19:17] LABS: ANION GAP 26 mEq/L (8-16); CALCIUM 9.7 mg/dL (8.5-10.4); CARBON DIOXIDE 19 mEq/l (22-31); CHLORIDE 99 mEq/L (97-110); CREATININE 2.3 mg/dL (0.7-1.3); ETHANOL SERUM 84 mg/dL (0-10); GLOMERULAR FILTRATION RATE 27; GLUCOSE 137 mg/dL (70-100); SODIUM 144 mEq/L (134-144)
[2017-04-02] MEDS ORDERED: NOREPINEPHRINE/NS 500 ML IV ONE (19:17)
[2017-04-02 19:29] LABS: TROPONIN I 0.096 ng/mL (0.000-0.034)
[2017-04-02 19:32] LABS: BASE EXCESS -12.5 mEq/L (-2.5-2.5); BICARBONATE 21 mEq/L (22-26); MEASURED OXYGEN SATURATION 98 % (92-95); PO2 218 mmHg (65-75); TCO2 23 mEq/L (23-27)
[2017-04-02 19:33] LABS: PCO2 86 mmHg (34-38)
[2017-04-02] MEDS ORDERED: AZITHROMYCIN IV 500 MG in D5W 250 ML IV ONE (20:15)
--- NOTE | 2017-04-02 20:20 | EDPHY ---
H & P Time Seen by Provider: 04/02/17 18:30 HPI/ROS: HPI Altered mental status, speech disturbance. 81-year-old male by ambulance as a stroke alert. This patient lives in the basement apartment of his son's house. This patient has a history of congestive heart failure, alcohol abuse and heavy smoking. He is supposed to be on oxygen but is noncompliant. His son reports that he was last seen in a normal state of mind and function at 10:00 a.m. to 10:30 a.m. this morning. During the day he goes to a bar which is near his residence. The staff at the bar know him well and he has friends there whom he socialized is with. He is limited to 2 alcoholic beverages per day. While at the bar in the late morning and early afternoon it was noted by the staff and other patrons that he was not acting right, he was apparently slurring his speech and seemed sleepy. His son was then called to the bar at about 4:30 p.m. to pick him up. He was found by his son sitting on his walker chair and slumped over outside the bar. His son noted that his speech was slurring and he was slow to respond. He was able to get up on his feet. His son got him home. Got him downstairs into his apartment. Got him on the toilet so he could defecate. He was then too weak to stand up and his son called the ambulance. His son is ilvkg-bq-fhqnyabg and is present with the patient in the emergency department. His son informs me that the patient is a DNR and DNI. This was explained to me as well as the nursing staff present in resuscitation L[facility] 2. On arrival he is sleepy but easily arousable. ROS: Constitutional: No fever, no chills. As above. Eyes: No discharge. No changes in vision. ENT: No sore throat. No nasal congestion or rhinorrhea. Respiratory: No cough. He reports always being short of breath. Cardiac: No chest pain, no palpitations. Gastrointestinal: No abdominal pain, no vomiting, no diarrhea. Genitourinary: No hematuria. No dysuria or increased frequency with urination. Musculoskeletal: No back pain. No neck pain. No myalgias or arthralgias. Skin: No rashes. Neurological: No headache. As above. Past medical history: Nonischemic cardiomyopathy, echocardiogram May of 2014 shows 25% ejection fraction, cardiac catheterization in 2014 showed no coronary artery disease. Alcohol dependence, tobacco abuse, hypertension, TIA, prostate cancer status post XRT, hiatal hernia, peptic ulcer disease, congestive heart failure. Social history: Is as above. Here with his son who is power of trust and estates attorney. He is also with his [id number]. Physical Exam: General Appearance: Sleepy, but easily arouses, no distress. This patient is responding to questions appropriately. This patient appears well-hydrated and well-nourished. Eyes: Pupils equal and round small and reactive to light symmetrically at 1 mm. no pallor or injection. No lid edema, erythema or injection. No obvious nystagmus or photophobia. ENT, Mouth: Mucous membranes are moist. The pharyngeal tissues are unremarkable. No edema or swelling. No asymmetry suggestive of abscess. No erythema or exudates. Respiratory: There are no retractions. Lung sounds are diminished bilaterally. No significant rhonchi or wheezing. No tachypnea on initial exam. Cardiovascular: Regular rate and rhythm. No murmur Appreciated. Gastrointestinal: Moderately obese habitus. Abdomen is soft and nontender, no masses, bowel sounds normal. No focal tenderness at McBurney's point. No Burger sign. Neurological: He has a subtle right-sided facial droop. He has 3/5 left lower extremity strength relative to 5/5 in the right. Motor function is otherwise symmetrical and normal. His cranial nerves or otherwise normal. Skin: Warm and dry, no rashes. Musculoskeletal: Neck is supple and nontender. Extremities are symmetrical. All joints range without pain or impingement. Psychiatric: No agitation. No depression. Database: EKG: EKG time is 6:50 p.m.: EKG shows a sinus rhythm with ventricular rate of 81. There is a nonspecific intraventricular conduction delay, possibly an atypical left bundle branch block. 1st degree AV block noted. Appropriate discordance noted. No significant change from prior EKG from February 22 of this year. Interpreted by me. Imaging: Chest x-ray AP portable: Probable cardiomegaly. Patchy infiltrative process in both lung wallace, worse in the right lung field. This was compared to a prior study from February 20 of this year. Infiltrative process right base and lower lung field appears worse than this previous study. No pneumothorax. Interpreted by me. CT scan of head without contrast: age-related changes only. Results were discussed with staff radiologist. Procedures: Emergency department course: Patient initially assessed by me outside resuscitation [facility] 2. After that he was sent for noncontrast CT scan imaging of his head. His creatinine by i-STAT was 2.3. We could not give him contrast for CT angiogram because of this. He was returned to resuscitation [facility] 2. Initial blood pressures were in the 70s over 50s. 2 large-bore IVs were placed bilateral antecubital. He was started on IV normal saline with 1-2 L to be given over the next 1-2 hours. I have concern for CVA and avoiding hypotension, he was started on low-dose Levophed at 4 micrograms/minute. He was placed on face mask oxygen, non-rebreather at 10 L with pulse oximetries in the 90s. Through his emergency department course his speech and response to questioning has improved. Last known normal status was approximately 10:30 a.m.. He is not a tPA candidate. I discussed this in detail with his son and [id number]. They are both in agreement that this medication not be given. Blood cultures were drawn after review of the patient's chest x-ray and concern for possible pneumonia. Patient's initial venous lactate was 0.6. Patient started on broad-spectrum antibiotics for community acquired pneumonia, IV azithromycin and ceftriaxone. 7:30 p.m., spoke with on-call neurologist, Dr. Homero Membreno. He agrees that this patient is not a tPA candidate at this time. He will consult on the patient as needed after admission. 8:20 p.m., blood pressure is currently 129/73. Levophed discontinued. lunchroom monitor shows a wide complex sinus rhythm with ventricular rate of 90. Patient is on face mask oxygen at 5 L with a pulse oximetry of 96%. Patient's mental status has not changed from above. He is sleepy but arouses to voice easily. Hospitalist paged. 8:40 p.m., spoke with hospitalist Dr. Marcello Bermudez. He will see this patient in the emergency department however, he accepts the patient for admission will admit the patient to the step-down unit initially. 9:20 p.m., Dr. Bermudez at the bedside. Patient became apneic and cyanotic. Nasopharyngeal airway placed. Hqp-[id number] of respirations by myself and the nursing staff. Pulse oximetries dropped into the low 80s but quickly came back up to the mid 90s. We then started him on CPAP at 10. Pulse oximetries quickly came up into the mid to upper 90s, cyanosis resolved. His son again confirmed that he did not want the patient intubated. 10:00 p.m., patient tolerating CPAP well. Pulse oximetry 96%. He is sleeping. His respiratory drive is more depressed at this time. Noninvasive ventilation will switch to BiPAP to provide inspiratory pressure at 15/8. He tolerates this well and pulse oximetry came up to 98%. Myself and Dr. Bermudez of talked extensively to the son and [id number] regarding care wishes. The patient was admitted to the ICU step-down unit in stable but guarded condition under the care of Dr. Bermudez. Differential Diagnosis: The differential diagnosis on this patient includes but is not limited to alcohol intoxication, pneumonia, congestive heart failure, hypercapnia, encephalopathy, respiratory failure, TIA. This represents a partial list of diagnoses considered. These considerations are based on history, physical exam , past history, reassessment and diagnostic testing. Smoking Status: Current every day smoker Constitutional: Initial Vital Signs Temperature (C) 36.8 C 04/02/17 18:30 Heart Rate 85 04/02/17 18:30 Respiratory Rate 25 H 04/02/17 18:30 Blood Pressure 82/51 L 04/02/17 18:30 O2 Sat (%) 87 L 04/02/17 18:30 O2 Delivery Mode Non-Rebreather Mask O2 (L/minute) 15 Allergies/Adverse Reactions: No Known Allergies Allergy (Verified 02/14/17 11:38) Home Medications: Medication Instructions Recorded Aspirin [Aspirin 81mg (*)] 81 mg PO DAILY #0 tab 06/13/14 Carvedilol [Coreg (*)] 3.125 mg PO BIDMEAL #60 tab 06/13/14 Ibuprofen [Motrin (*)] 200 mg PO Q4-6PRN PRN 02/14/17 Omeprazole [Prilosec 20 mg] 20 mg PO DAILY 02/14/17 Furosemide [Lasix 40 MG (*)] 40 mg PO DAILY #30 tab 02/22/17 Losartan Potassium [Cozaar 50 mg 25 mg PO DAILY #30 tab 02/22/17 (*)] Herbals/Supplements -Info Only 1 ea PO DAILY 04/02/17 Medical Decision Making Critical Care Time: I spent a total of 42 minutes of critical care time in obtaining history, performing a physical exam, bedside monitoring of interventions, collecting and interpreting tests and discussion with consultants but not including time spent performing procedures. - Data Points Laboratory Results: Laboratory Results 04/02/17 18:28 04/02/17 18:28 04/02/17 18:27 POC Hgb 17.0 gm/dL gm/dL (13.7-17.5) POC Hct 50 % % (40-51) POC Sodium 141 mEq/L mEq/L (134-144) POC Potassium 4.6 mEq/L mEq/L (3.3-5.0) POC Chloride 104 mEq/L mEq/L (97-110) POC BUN 43 mg/dL H mg/dL (7-23) POC Creatinine 2.5 mg/dL H mg/dL (0.7-1.3) POC Glucose 142 mg/dL H mg/dL (70-100) Medications Given: Albuterol/Ipratropium (Duoneb) 3 ml IH Q6HRS STEPHANI Stop: 09/30/17 00:00 Last Admin: 04/03/17 05:12 Dose: 3 ml Azithromycin 500 mg/ Dextrose 255 mls @ 255 mls/hr IV DAILY STEPHANI PRN Reason: Protocol Stop: 05/03/17 08:59 Last Admin: 04/03/17 09:48 Dose: 255 mls Ceftriaxone Sodium/Dextrose (Rocephin 1 Gm (Premix)) 50 mls @ 100 mls/hr IV DAILY STEPHANI PRN Reason: Protocol Stop: 05/03/17 08:59 Last Admin: 04/03/17 08:59 Dose: 50 mls Methylprednisolone Sodium Succinate (Solu-Medrol) 125 mg IVP Q6HRS STEPHANI Stop: 09/30/17 00:00 Last Admin: 04/03/17 06:21 Dose: 125 mg Discontinued Medications Furosemide (Lasix Injection) 20 mg IVP ONCE ONE Stop: 04/02/17 21:27 Last Admin: 04/02/17 21:31 Dose: 20 mg Haloperidol Lactate (Haldol Injection) 1 mg IVP ONCE ONE Stop: 04/03/17 02:33 Last Admin: 04/03/17 02:40 Dose: 1 mg Sodium Chloride (Ns) 500 mls @ 500 mls/hr IV EDNOW ONE PRN Reason: Protocol Stop: 04/02/17 19:29 Last Admin: 04/02/17 18:45 Dose: 1,000 mls Norepinephrine/Sodium Chloride (Norepinephrine 8 Mcg/Ml (Premix)) 500 mls @ 0 mls/hr IV EDNOW ONE; Per Protocol PRN Reason: Protocol Stop: 04/02/17 19:18 Last Admin: 04/02/17 18:52 Dose: 500 mls Sodium Chloride (Ns) 1,000 mls @ 0 mls/hr IV ONCE ONE PRN Reason: Wide Open Stop: 04/02/17 19:18 Last Admin: 04/02/17 19:00 Dose: 1,000 mls Azithromycin 500 mg/ Dextrose 255 mls @ 255 mls/hr IV EDNOW ONE PRN Reason: Protocol Stop: 04/02/17 21:14 Last Admin: 04/02/17 20:23 Dose: 255 mls Ceftriaxone Sodium/Dextrose (Rocephin 1 Gm (Premix)) 50 mls @ 100 mls/hr IV EDNOW ONE PRN Reason: Protocol Stop: 04/02/17 19:57 Last Admin: 04/02/17 19:52 Dose: 50 mls Methylprednisolone Sodium Succinate (Solu-Medrol) 125 mg IVP ONCE ONE Stop: 04/02/17 21:47 Last Admin: 04/02/17 21:50 Dose: 125 mg Ondansetron HCl (Zofran) 4 mg IVP EDNOW ONE Stop: 04/02/17 18:31 Last Admin: 04/02/17 18:45 Dose: 4 mg Point of Care Test Results: 04/02/17 18:27 POC Sodium 141 POC Potassium 4.6 POC Chloride 104 POC BUN 43 H POC Creatinine 2.5 H POC Glucose 142 H Departure - Departure Disposition: [facility] Inpatient Acute Clinical Impression: Encephalopathy, Renal insufficiency, Congestive heart failure, Possible pneumonia, Respiratory acidosis, Hypercapnia, Respiratory failure, Possible CVA
[2017-04-02] MEDS ORDERED: FUROSEMIDE 20 MG/2 ML VIAL IVP ONE (21:26)
[2017-04-02 21:31] LABS: BASE EXCESS -15.5 mEq/L (-2.5-2.5); BICARBONATE 24 mEq/L (22-26); MEASURED OXYGEN SATURATION 96 % (92-95); PO2 160 mmHg (65-75); TCO2 28 mEq/L (23-27)
[2017-04-02] MEDS ORDERED: methylPREDNISolone SOD SUCC 125 MG/2 ML VIAL ONE (21:34)
[2017-04-02 21:39] LABS: PCO2 > 125 mmHg (34-38)
[2017-04-02 21:40] LABS: CPAP YES; O2 CONCENTRATIION 100 % (0-100); P/F RATIO 160 RATIO
[2017-04-02] MEDS ORDERED: methylPREDNISolone SOD SUCC 125 MG/2 ML VIAL IVP ONE (21:46)
[2017-04-02] MEDS ORDERED: ONDANSETRON DISINTEGRATING 4 MG TAB PO PRN (21:56)
[2017-04-02] MEDS ORDERED: ALBUTEROL 3 ML DEYVIAL IH PRN (21:56)
[2017-04-02] MEDS ORDERED: ONDANSETRON 4 MG/2 ML VIAL IVP PRN (21:56)
[2017-04-02] MEDS ORDERED: ACETAMINOPHEN 325 MG TAB PO PRN (21:56)
--- NOTE | 2017-04-02 22:57 | GHP ---
[f rep st] HISTORY AND PHYSICAL DATE OF ADMISSION: 04/02/2017 HISTORY OF PRESENT ILLNESS: The patient is an 81-year-old gentleman with a history of congestive hea rt failure and tobacco use, who was in his usual state of health today. It sounds like he typically spends his days going across the street to a bar with a walker, where he hangs out. He has a two-dri nk limit over there that his son has established, and then he goes back home. He goes over there abo ut 10:30 am in the morning, comes back home about 4:00. It sounds like he is an outgoing, gregarious arnaldo who enjoys chatting with people. When his son got home at 4:30, his father was not there. He w as across the street looking dyspneic. There was a possible right facial droop. He presented to the emergency department as a stroke alert. His emergency department course is fairly long. It sounds like there was consideration of a stroke, then he became hypotensive, requiring Levophed which has subsequently been weaned off. Ultimately, a n ABG was performed which showed a pCO2 of 84 and a pH of 7.01. The emergency department physician s poke with the family at length and ultimately decided to make him a Do Not Resuscitate and not escala te care. When I arrived in the hospital, the patient had recently just had a respiratory arrest and a bi-level was placed. ABG performed at that time showed a pCO2 assay of greater than 125, as well a s a pH of 6.87. REVIEW OF SYSTEMS: A complete 10-point review of systems was attempted to be conducted, but the jeny ent is unresponsive. PAST MEDICAL HISTORY: 1. Alcohol dependence. 2. COPD. 3. Diastolic heart failure. 4. Nonischemic cardiomyopathy with an EF of 25%. Last echo performed about 6 weeks ago showed an EF that had improved to 35% to 40%. 5. Left bundle branch block. 6. Peptic ulcer disease. 7. Hiatal hernia. 8. DJD. 9. Prostate cancer status post XRT. 10. Tobacco abuse. 11. Hypertension. 12. TIA. 13. Cataract. 14. Basal cell cancer removal. SOCIAL HISTORY: He is originally from [place], moved here about 4 years ago. Son manages finances. He has 2 drinks per day. FAMILY HISTORY: Mother had diabetes. Father at the age of 59 with heart disease. ALLERGIES: No known drug allergies. MEDICATIONS: Home medications are carvedilol, aspirin, Lasix, ibuprofen, losartan, omeprazole. PHYSICAL EXAMINATION: VITAL SIGNS: Temperature 36.4, blood pressure 115/69, pulse 87, breathing 20 times a minute, 97% on 15 L non-rebreather (although now when I seen the patient his saturation is 99 % on CPAP). GENERAL: Unresponsive. Chronically ill appearing. HEENT: Sclerae anicteric. Orophar ynx clear. Mucous membranes are moist. NECK: Markedly elevated JVD. LUNGS: Distant breath sounds . Bilateral air movement without wheezes. HEART: S1, S2 without murmurs. ABDOMEN: Soft, nontende r, nondistended. LOWER EXTREMITIES: His toes are purplish. He has 1+ edema bilaterally. There are cool. LABORATORY DATA: White count 12.7, hematocrit 49.9, MCV is elevated at 106, platelets are 310,000. Coagulation studies are fairly normal. Initial ABG was 7.01, 86, 213, 23; it is now 6.87, greater th an 125, 160, 28. Sodium 144, potassium 5.0, chloride 99, bicarb 19, BUN 40, creatinine 2.3 (his base line is higher than that). Troponin 0.096. BNP is elevated at 24,600. Ethanol level is 84. LABORATORY STUDIES: 1. Chest x-ray, interpreted by me, shows bibasilar airspace disease, calcified pleural plaques, enla rged cardiac silhouette. 2. EKG, interpreted by me, shows sinus with first-degree A-V conduction delay. Some diffuse ST abno rmalities, lateral ST depression. 3. Noncontrast head CT shows no acute intracranial abnormalities. Moderate chronic vascular ischemi c changes. I have discussed the case with . ASSESSMENT AND PLAN: A complex 81-year-old arnaldo who presents with acute hypercarbic respiratory failu re. 1. Acute hypercarbic respiratory failure. I think the patient has underlying chronic obstructive pu lmonary disease and probably has an intercurrent infection. He has been started on ceftriaxone and a zithromycin. He was hospitalized 6 weeks ago. I think this is a reasonable choice. a. At the current time, the patient is on bi-level on and we will repeat an ABG in about 2 hours. I f it has not improved, it may be reasonable to pursue comfort care. b. Plan of Care. The patient is Do Not Resuscitate/Do Not Intubate. There will be no central line or pressors. 2. Volume overload. The patient was clinically dry when he got here. He is now I think a bit volum e overloaded. I will give him 20 mg of Lasix. I do acknowledge his lowish blood pressure. Will fol low. Certainly he may require repeat dosing of Lasix. 3. Alcohol use, chronic. He is not in withdrawal. He is at low risk for it. 4. Heart failure. The patient has an ejection fraction of 35% to 40%. He received 2.5 L of IV flui d. Certainly, this has probably tipped him over the edge and may be driving his process. I will giv e some Lasix and I will sign out that he may require some more Lasix here in the coming hours. 5. Chronic obstructive pulmonary disease with exacerbation. Solu-Medrol, nebulizers, antibiotics. 6. Code status. Do Not Resuscitate. DISPOSITION: Intensive Care Unit. BILLIN minutes of critical care time spent on this patient. /[id number]/MODL
[2017-04-03] MEDS: IPRATROPIUM/ALBUTEROL 3 ML DEYVIAL IH SCH ×5 (00:18→23:40)
[2017-04-03] MEDS: methylPREDNISolone SOD SUCC 125 MG/2 ML VIAL IVP SCH ×4 (00:31→17:14)
[2017-04-03 01:06] LABS: BICARBONATE 27 mEq/L (22-26); MEASURED OXYGEN SATURATION 88 % (92-95); PO2 72 mmHg (65-75); TCO2 31 mEq/L (23-27)
[2017-04-03 01:13] LABS: BIPAP YES; EXP PRESSURE 8; INSP PRESSURE 15; PCO2 102 mmHg (34-38)
[2017-04-03 01:14] LABS: O2 CONCENTRATIION 40 % (0-100); P/F RATIO 180 RATIO
[2017-04-03] MEDS ORDERED: HALOPERIDOL LACT 5 MG/ML INJ IVP ONE (02:32)
[2017-04-03 05:44] LABS: ANION GAP 14 mEq/L (8-16); CALCIUM 8.1 mg/dL (8.5-10.4); CARBON DIOXIDE 29 mEq/l (22-31); CHLORIDE 104 mEq/L (97-110); CREATININE 2.2 mg/dL (0.7-1.3); GLOMERULAR FILTRATION RATE 29; GLUCOSE 127 mg/dL (70-100); SODIUM 147 mEq/L (134-144)
[2017-04-03 05:55] LABS: TROPONIN I 0.614 ng/mL (0.000-0.034)
[2017-04-03] MEDS ORDERED: ENOXAPARIN 30 MG/0.3 ML SYR SC SCH (09:00)
--- NOTE | 2017-04-03 09:23 | PDMN ---
Medical Necessity Medical necessity: GRG resp failure- acute hypercarbic resp failure, with poss underlying COPD exacerbation, , in pt. with heart failure, further monitoring and eval needed, pt in ICU
[2017-04-03] MEDS: AZITHROMYCIN IV 500 MG in D5W 250 ML IV SCH (09:48)
--- NOTE | 2017-04-03 14:35 | GCON ---
[f rep st] CONSULTATION [facility] CONSULTATION REASON FOR ADMISSION: Hypercarbic respiratory failure. HISTORY OF PRESENT ILLNESS: The patient is an 81-year-old, white male with extensive past medical hi story, including alcoholism, diastolic heart failure, left bundle branch block, peptic ulcer disease, prostate cancer, hypertension, tobacco abuse, chronic obstructive pulmonary disease, and a TIA. He was brought to the emergency room via EMS where it was initially thought he may have had a stroke. B lood gas revealed a marked elevation of the pCO2 up to 125 and a pH of 7.86. He was admitted to the intensive care unit and placed on BiPAP. He is Gi-[id number]-[id number] per family. He is currently on Bi PAP and remains obtunded. All history is gleaned from the medical record. PAST MEDICAL HISTORY: Significant for alcoholism, diastolic heart failure, left bundle branch block, hiatal hernia, prostate cancer, hypertension, cataract, TIA, degenerative joint disease, and chronic obstructive pulmonary disease. SOCIAL HISTORY: Heavy smoker. He drinks 2 alcoholic drinks per day. He is originally from [place] and moved here approximately 4 years ago. FAMILY HISTORY: Significant for diabetes. ALLERGIES: None known. HOME MEDICATIONS: Include omeprazole, losartan, ibuprofen, Lasix, aspirin, and carvedilol. REVIEW OF SYSTEMS: A complete 10-point review of systems was conducted. Patient is obtunded and unr esponsive. PHYSICAL EXAMINATION: VITAL SIGNS: Blood pressure is 113/50 pulse 79, respirations 21, temperature 36.6, oxygen saturation 95% on 50% BiPAP. GENERAL: A mildly overweight, elderly white male, who is obtunded AND on mechanical ventilation. HEENT: Eyes: PERRLA. EOMI. Throat exam is deferred. NEC K: Supple. No cervical adenopathy. HEART: Regular rate and rhythm with a 2/6 systolic murmur left sternal border without radiation. LUNGS: Diminished breath sounds and a significant prolongation o f the expiratory phase. There are a few bibasilar crackles. ABDOMEN: Soft, nontender. Bowel sound s are present. EXTREMITIES: No clubbing, cyanosis, or edema. LABORATORY DATA: White count 12.6, hemoglobin of 15, hematocrit 49, platelet count is 310. Arterial blood gas: pH 7.87, pCO2 greater than 125, pO2 160, bicarb 28, oxygen saturation 96%. Most recent arterial blood gas: pCO2 is down to 102 and pH is up to 7.050. IMPRESSION: 1. Hypercarbic respiratory failure. 2. Chronic obstructive pulmonary disease acute exacerbation. 3. Nonischemic cardiomyopathy. 4. Left bundle branch block. 5. Hypertension. 6. Degenerative joint disease. RECOMMENDATIONS: I have had a long talk with the patient's family. Given his extremely poor prognos is. It is their wish that he be made comfortable and all support be withdrawn. We will abide by brittny tran recommendations. We will discontinue BiPAP and put him on comfort care. /[id number]/MODL
[2017-04-03 15:06] LABS: BASE EXCESS -3.8 mEq/L (-2.5-2.5); BICARBONATE 27 mEq/L (22-26); MEASURED OXYGEN SATURATION 96 % (92-95); PO2 95 mmHg (65-75); TCO2 30 mEq/L (23-27)
[2017-04-03] MEDS ORDERED: FUROSEMIDE 20 MG/2 ML VIAL IVP ONE (16:36)
[2017-04-03] MEDS ORDERED: LORazepam 2 MG/ML INJ IVP PRN (16:37)
--- NOTE | 2017-04-03 16:52 | HOSPPROG ---
Hospitalist Progress Note Assessment/Plan: Assessment: 81-year-old male presenting with acute hypercapnic respiratory failure resulting in acute metabolic encephalopathy in the setting of acute systolic congestive heart failure exacerbation and possible acute COPD exacerbation Plan: 1. Acute hypercapnic respiratory failure. Evidenced by pCO2 of greater than 120 with a pH of 6.8, with respiratory distress, most likely secondary to acute systolic CHF exacerbation as well as possible COPD exacerbation, unclear precipitant -patient's situation appeared gravely terminal this morning, with pH only improving to 7.02 and pCO2 remaining around 100, engaged family in goals of care conversations this morning, confirmed his do not resuscitate, do not intubate status, agreed to support him on BiPAP and gauge effect -around 3:00 p.m. this afternoon the patient's repeat ABG demonstrated pH around 7.2, pCO2 of 80, metabolic compensation, and improved mental status -engage the patient in goals of care conversations, and he confirmed that he is no CPR, no intubation, but is amenable to BiPAP as needed -will continue him on face mask oxygen, scheduled at bedtime BiPAP, and monitoring of ABG with labs drawn at 6:00 p.m., midnight, tomorrow a.m. -will continue this method of supportive care, re-engage the patient and his family regarding goals of care discussions in the morning, gauge effect of treatment 2. Acute metabolic encephalopathy. Evidenced by global brain dysfunction characterized as complete unresponsiveness, which is an acute change from his baseline, secondary to severe acidosis and hypercapnia as outlined above -mental status significantly improved with treatment of above -patient is currently oriented x3, remains lethargic, will continue to require redirection -given possible contributing effect of Haldol last night, have discontinued Haldol from his profile and would preferentially utilize low-dose IV Ativan tonight if pharmacotherapy needed while patient is on BiPAP -patient currently agreeable to restraints overnight if needed to help him tolerate BiPAP 3. Acute systolic congestive heart failure exacerbation. Recent ejection fraction 35% from 6 weeks ago, interstitial infiltrates [place] [address] -status post IV Lasix in the emergency department, -continue IV Lasix 20 mg twice daily -continue Schneider catheter for accurate I&O -communicated with patient's primary it security specialist, Dr. Jt Florence 4. Possible acute COPD exacerbation. Patient with underlying COPD, suspect chronically elevated pCO2, likely in the 50-60 range, with the current a pCO2 level severely elevated from baseline -continue IV steroids, continue scheduled duo nebs, continue antibiotics -continue HS BiPAP -continue ABG monitoring 5. Chronic nonischemic cardiomyopathy. Previous EF 25%, recently improved to 35%, holding home beta-raphael and ARB, given questionable p.o. status 6. Acute kidney injury on chronic kidney disease stage 3. Creatinine level elevated to 2.5, received IV fluids in the emergency department, patient appears to be hypovolemic at this time and we are actively diuresing -continue monitor creatinine level 7. Hyperkalemia. Acute, most likely secondary to renal dysfunction, repeat serum chemistry with ABG at 6:00 p.m. 8. Hypernatremia. Acute, cont to monitor Diet. NPO, liquids okay, get formal SENIOR INVESTMENT ANALYST eval in a.m., bedside swallow eval with advancing diet if tolerates Prophylaxis. High risk patient, heparin subcu Code. Do not resuscitate, do not intubate, confirmed with patient Disposition. Anticipated discharge uncertain, remains critically ill. 60 min of critical care time spent with patient, with family, at bedside, coordinating care with Dr. Coy Tubbs, addressing issues outlined above including goals of care, patient remains critically ill. Subjective: Patient initially nonresponsive, and on subsequent encounter patient is interactive, lethargic Objective: Vital Signs Temp Pulse Resp BP Pulse Ox 36.8 C 87 18 117/58 L 99 04/03/17 16:00 04/03/17 16:00 04/03/17 16:00 04/03/17 16:00 04/03/17 16:00 Microbiology 04/02/17 21:19 Respiratory Panel (PCR) - Final Nasal, Sinus - Swab No Organism Detected Laboratory Results 04/03/17 05:20 04/02/17 04/03/17 04/04/17 05:59 05:59 05:59 Intake Total 2500 300 Output Total 150 Balance 2350 300 PT 15.0 SEC (12.0-15.0) 04/02/17 18:28 INR 1.16 (0.83-1.16) 04/02/17 18:28 - Physical Exam Constitutional: not in pain, chronically ill appearing, No uncomfortable Cardiovascular: systolic murmur (1/6 at the sternum, distant heart sounds), JVD , edema (Trace bilateral lower extremity), No irregularly irregular, No tachycardia Respiratory: reduced air movement (Diffusely throughout on inspiration and expiration), inspiratory crackles (Bilateral bases), respiratory distress ( Initially on BiPAP, visibly tachypneic), No expiratory wheeze, No bronchial breath sounds Gastrointestinal: normoactive bowel sounds, soft, non-tender abdomen, no palpable masses Neurologic: other (Initially unresponsive, subsequently alert awake oriented x3) Psychiatric: not anxious, other (Initially completely encephalopathic, improved mental status subsequent eval), No agitated ICD10 Worksheet Patient Problems: Problems Problem Status Onset Syncope Acute TIA (transient ischemic attack) Acute Cardiomyopathy, dilated Acute Left bundle branch block Acute Acute exacerbation of congestive heart failure Acute Encephalopathy Acute Renal insufficiency Acute Congestive heart failure Acute Hypercarbia Acute Respiratory acidosis Acute Respiratory failure Acute
[2017-04-03] MEDS: HEPARIN 5,000 UNIT/0.5 ML SYR SC SCH (17:09)
[2017-04-03 18:00] LABS: BASE EXCESS -3.3 mEq/L (-2.5-2.5); BICARBONATE 27 mEq/L (22-26); MEASURED OXYGEN SATURATION 94 % (92-95); PO2 81 mmHg (65-75); TCO2 30 mEq/L (23-27)
[2017-04-03 18:01] LABS: PCO2 76 mmHg (34-38)
[2017-04-03] MEDS ORDERED: ORAL BALANCE GEL TUBE PO PRN (19:10)
[2017-04-03 20:43] LABS: ANION GAP 15 mEq/L (8-16); CALCIUM 8.1 mg/dL (8.5-10.4); CARBON DIOXIDE 26 mEq/l (22-31); CHLORIDE 104 mEq/L (97-110); GLOMERULAR FILTRATION RATE 32; GLUCOSE 126 mg/dL (70-100); POTASSIUM 5.3 mEq/L (3.5-5.2); SODIUM 145 mEq/L (134-144)
[2017-04-04 00:04] LABS: BASE EXCESS -1.7 mEq/L (-2.5-2.5); BICARBONATE 27 mEq/L (22-26); MEASURED OXYGEN SATURATION 99 % (92-95); PCO2 66 mmHg (34-38); PO2 179 mmHg (65-75); TCO2 29 mEq/L (23-27)
[2017-04-04 00:06] LABS: BIPAP YES
[2017-04-04 00:07] LABS: EXP PRESSURE 8; O2 CONCENTRATIION 40 % (0-100); P/F RATIO 448 RATIO
[2017-04-04] MEDS: HEPARIN 5,000 UNIT/0.5 ML SYR SC SCH ×4 (00:17→21:44)
[2017-04-04] MEDS: methylPREDNISolone SOD SUCC 125 MG/2 ML VIAL IVP SCH ×4 (01:06→17:21)
[2017-04-04] MEDS: IPRATROPIUM/ALBUTEROL 3 ML DEYVIAL IH SCH ×4 (05:37→21:11)
[2017-04-04 05:43] LABS: BASE EXCESS -0.5 mEq/L (-2.5-2.5); BICARBONATE 28 mEq/L (22-26); MEASURED OXYGEN SATURATION 98 % (92-95); PCO2 65 mmHg (34-38); PO2 119 mmHg (65-75); TCO2 30 mEq/L (23-27)
[2017-04-04 05:44] LABS: O2 CONCENTRATIION 82 % (0-100); P/F RATIO 145 RATIO
[2017-04-04 05:47] LABS: % IMMATURE GRANULYOCYTES 0.7 % (0.0-1.1); ABSOLUTE IMMATURE GRANULOCYTES 0.05 10^3/uL (0.00-0.10); ABSOLUTE NRBC COUNT 0.05 10^3/uL (0-0.01); ADD DIFF? NO; ADD MORPH? NO; ADD SCAN? NO; ATYPICAL LYMPHOCYTE FLAG 10 (0-99); FRAGMENT RBC FLAG 0 (0-99); LEFT SHIFT FLG 0 (0-99); LIPEMIA HEMOLYSIS FLAG 80 (0-99); MEAN CELL HEMOGLOBIN 34.8 pg (27.9-34.1); MEAN CELL HEMOGLOBIN CONCENTR. 32.6 g/dL (32.4-36.7); MEAN PLATELET VOLUME 9.4 fL (8.7-11.7); NRBC-AUTO% 0.7 % (0.0-0.2); PLATELET CLUMPS FLAG 0 (0-99); PLATELET COUNT 218 10^3/uL (150-400); RED BLOOD CELL COUNT 4.02 10^6/uL (4.40-6.38)
[2017-04-04 06:05] LABS: ALANINE AMINOTRANSFERASE 56 IU/L (21-72); ALBUMIN 3.3 g/dL (3.5-5.0); ALKALINE PHOSPHATASE 93 IU/L (38-126); ANION GAP 12 mEq/L (8-16); ASPARTATE AMINOTRANSFERASE 32 IU/L (17-59); BILIRUBIN,TOTAL 0.2 mg/dL (0.1-1.4); CALCIUM 8.3 mg/dL (8.5-10.4); CARBON DIOXIDE 28 mEq/l (22-31); CHLORIDE 108 mEq/L (97-110); CREATININE 1.7 mg/dL (0.7-1.3); GLOMERULAR FILTRATION RATE 39; GLUCOSE 134 mg/dL (70-100); POTASSIUM 5.3 mEq/L (3.5-5.2); SODIUM 148 mEq/L (134-144); TOTAL PROTEIN 6.4 g/dL (6.3-8.2)
[2017-04-04] MEDS ORDERED: FUROSEMIDE 20 MG/2 ML VIAL IVP SCH (09:00)
[2017-04-04] MEDS: AZITHROMYCIN IV 500 MG in D5W 250 ML IV SCH (09:02)
--- NOTE | 2017-04-04 09:29 | PDINTPN ---
Sexual Assault Counsellor Progress Note Assessment/Plan: Assessment: * Hypercarbic respiratory failure-markedly improved. PCO2 down to 63. * Chronic obstructive pulmonary disease * Left bundle branch block * Hypertension * Degenerative joint disease * Probable alcoholism Plan: Hold BiPAP for now Out of bed to chair Begin ambulation Continue steroids and frequent nebulized treatments Case discussed with respiratory therapy and nursing Subjective: Up in chair. Comfortable. Appears to be breathing easily. Minimal cough Objective: Vital Signs Temp Pulse Resp BP Pulse Ox 36.4 C 82 15 123/62 H 92 04/04/17 07:41 04/04/17 07:41 04/04/17 07:41 04/04/17 07:41 04/04/17 07:41 Microbiology 04/02/17 21:19 Respiratory Panel (PCR) - Final Nasal, Sinus - Swab No Organism Detected Laboratory Results 04/04/17 05:45 04/04/17 05:45 04/03/17 04/04/17 04/05/17 05:59 05:59 05:59 Intake Total 2500 400 Output Total 150 900 Balance 2350 -500 PT 15.0 SEC (12.0-15.0) 04/02/17 18:28 INR 1.16 (0.83-1.16) 04/02/17 18:28 - Time Spent With Patient Time Spent With Patient: 25 min of time spent with patient, 1/2 involved in coordination of care Physical Exam - Physical Exam General Appearance: alert, no apparent distress EENT: PERRL/EOMI, normal ENT inspection Neck: non-tender, full range of motion, supple, normal inspection Respiratory: decreased breath sounds, prolonged expiration, No respiratory distress, No wheezing Cardiac/Chest: normal peripheral pulses, regular rate, rhythm, systolic murmur Peripheral Pulses: 2+: carotid (R), carotid (L), femoral (R), femoral (L), dorsalis-pedis (R), dorsalis-pedis (L) Abdomen: normal bowel sounds, non-tender, soft Male Genitalia: deferred Rectal: deferred Skin: normal color, warm/dry Extremities: normal range of motion, non-tender, normal inspection, normal capillary refill Neuro/Psych: no motor/sensory deficits, alert, normal mood/affect, oriented x 3 ICD10 Worksheet Patient Problems: Problems Problem Status Onset Congestive heart failure Acute Encephalopathy Acute Hypercarbia Acute Renal insufficiency Acute Respiratory acidosis Acute Respiratory failure Acute Acute exacerbation of congestive heart failure Acute Cardiomyopathy, dilated Acute Left bundle branch block Acute Syncope Acute TIA (transient ischemic attack) Acute
--- NOTE | 2017-04-04 12:01 | HOSPPROG ---
Hospitalist Progress Note Assessment/Plan: Assessment: 81-year-old male presenting with acute hypercapnic respiratory failure and encephalopathy Plan: # Acute hypercapnic respiratory failure. Initially, pCO2 >125, required 18 hrs of bipap, pCO2 now in the 60's. pH 6.87 --> 7.25, clinically improved, on 3 LPM. - pt does not want intubation - cont COPD management as below - needs outpt sleep study and possibly home bipap to keep pCO2 down # Acute metabolic encephalopathy. Likely CO2 encephalopathy, improved. # ? systolic congestive heart failure exacerbation. Recent ejection fraction 35% 02/2017, interstitial infiltrates [place] [address] -change to oral lasix tomorrow -dc figueroa -follow I&O's, daily weights # COPD exacerbation. Likely baseline pCO2 in 60's -continue IV steroids, scheduled duo nebs, antibiotics -continue HS BiPAP -continue ABG monitoring # Chronic nonischemic cardiomyopathy. Previous EF 25%, recently improved to 35% - resume BB, marge # Elevated trop. Trop uche to 0.6 yesterday. ?Strain given above. - recheck trop to ensure downtrending # Acute kidney injury on chronic kidney disease stage 3. Cr 2.3 --> 1.7 -continue monitor creatinine level # Hyperkalemia. Stable at 5.3. Cont to follow closely # Hypernatremia. Suspect related to free water loss with IV Lasix. - d/c IV lasix - resume home oral lasix dose tomorrow - recheck this afternoon, may need small amt of D5W # Tobacco abuse - nicoderm # Alcohol use - has 2 drinks per night - agreed to 1 glass of wine daily Diet. regular Prophylaxis. High risk patient, heparin subcu Code. Do not resuscitate, do not intubate, confirmed with patient Disposition. cont inpt Subjective: Pt feels much better. Mentating, communicating clearly. Seems back to baseline. No fevers/chills. Breathing at baseline. No CP. Objective: Vital Signs Temp Pulse Resp BP Pulse Ox 36.4 C 82 15 123/62 H 92 04/04/17 07:41 04/04/17 07:41 04/04/17 07:41 04/04/17 07:41 04/04/17 07:41 Microbiology 04/02/17 21:19 Respiratory Panel (PCR) - Final Nasal, Sinus - Swab No Organism Detected Laboratory Results 04/04/17 05:45 04/04/17 05:45 04/03/17 04/04/17 04/05/17 05:59 05:59 05:59 Intake Total 2500 400 Output Total 150 900 150 Balance 2350 -500 -150 PT 15.0 SEC (12.0-15.0) 04/02/17 18:28 INR 1.16 (0.83-1.16) 04/02/17 18:28 - Physical Exam Constitutional: no apparent distress Eyes: PERRL Ears, Nose, Mouth, Throat: moist mucous membranes Cardiovascular: regular rate and rhythym Respiratory: no respiratory distress, reduced air movement Gastrointestinal: normoactive bowel sounds, soft, non-tender abdomen Skin: warm Musculoskeletal: full muscle strength Neurologic: AAOx3 Psychiatric: interacting appropriately ICD10 Worksheet Patient Problems: Problems Problem Status Onset Congestive heart failure Acute Encephalopathy Acute Hypercarbia Acute Renal insufficiency Acute Respiratory acidosis Acute Respiratory failure Acute Acute exacerbation of congestive heart failure Acute Cardiomyopathy, dilated Acute Left bundle branch block Acute Syncope Acute TIA (transient ischemic attack) Acute
[2017-04-04] MEDS: NICOTINE 7 MG/24 HR PATCH TD SCH (12:26)
[2017-04-04] MEDS ORDERED: NON-FORMULARY NEW DRUG (Omeprazole [Prilosec 20 Mg] 20 MG) PO SCH (12:30)
[2017-04-04] MEDS: PANTOPRAZOLE SODIUM 40 MG TAB PO SCH (12:31)
[2017-04-04] MEDS: ASPIRIN 81 MG CHEWABLE TAB PO SCH (12:31)
--- NOTE | 2017-04-04 15:54 | ASMTCMCOM ---
CM Note CM Note Notes: Patient doing well today after being obtunded with poor prognosis yesterday. Today, he was up and able to communicate and work with therapies. I spoke with his son/FRANCHESKA Thompson regarding discharge planning. Jay was concerned about patient's insurance coverage; per Jay, patient is insured through an [employer] insurer - we have it listed as [employer]. Jay wondered if I knew how much patient had been charged toward his [phone] coverage limit. I sent an email to our financial counseling department asking them to follow up with Jay by phone. I also had Britta from send clinicals to the insurance company. Regarding discharge planning, Jay says that patient has historically been non-compliant with PT/OT, etc. He feels that it would be best if acute therapies could work with patient while he's here and see if he's interested in learning the exercises. If so, Jay will pursue outpatient therapy for patient, as his insurance does not cover home care. I anticipate discharge in 1-2 days. Jay will take the patient home. Date Signed: 04/04/2017 03:54 PM Electronically Signed By:Nasrin Pablo RN
[2017-04-04] MEDS: CARVEDILOL 3.125 MG TAB PO SCH (17:21)
[2017-04-04] MEDS: RED WINE 120 ML BOTTLE PO SCH (17:22)
[2017-04-05] MEDS: methylPREDNISolone SOD SUCC 125 MG/2 ML VIAL IVP SCH (00:20)
[2017-04-05] MEDS: IPRATROPIUM/ALBUTEROL 3 ML DEYVIAL IH SCH ×5 (05:24→21:26)
[2017-04-05] MEDS: HEPARIN 5,000 UNIT/0.5 ML SYR SC SCH ×3 (06:25→21:34)
[2017-04-05 06:52] LABS: ANION GAP 9 mEq/L (8-16); CALCIUM 8.3 mg/dL (8.5-10.4); CARBON DIOXIDE 29 mEq/l (22-31); CHLORIDE 103 mEq/L (97-110); CREATININE 1.1 mg/dL (0.7-1.3); GLOMERULAR FILTRATION RATE > 60; GLUCOSE 145 mg/dL (70-100); POTASSIUM 5.1 mEq/L (3.5-5.2); SODIUM 141 mEq/L (134-144)
[2017-04-05 08:25] LABS: BASE EXCESS 4.6 mEq/L (-2.5-2.5); BICARBONATE 29 mEq/L (22-26); MEASURED OXYGEN SATURATION 93 % (92-95); PCO2 43 mmHg (34-38); PO2 65 mmHg (65-75); TCO2 30 mEq/L (23-27)
[2017-04-05] MEDS: ASPIRIN 81 MG CHEWABLE TAB PO SCH (08:29)
[2017-04-05] MEDS: CARVEDILOL 3.125 MG TAB PO SCH ×2 (08:29→17:02)
[2017-04-05] MEDS: predniSONE 20 MG TAB PO SCH (08:29)
[2017-04-05] MEDS: NICOTINE 7 MG/24 HR PATCH TD SCH (08:30)
[2017-04-05] MEDS: PANTOPRAZOLE SODIUM 40 MG TAB PO SCH (08:30)
--- NOTE | 2017-04-05 08:57 | PDINTPN ---
Dental Office Assistant Progress Note Assessment/Plan: Assessment/plan: * Hypercarbic respiratory failure-markedly improved. PCO2 down -no need for BiPAP at this time. * Chronic obstructive pulmonary disease-improved -continue oral prednisone -continue nebulized treatments * Left bundle branch block * Hypertension-controlled * Degenerative joint disease * Probable alcoholism * Disposition-will transfer patient to floor today. Anticipate discharge to home tomorrow * PT/OT * Continue ambulation Subjective: Sitting up in chair. Comfortable. Wishes to go home. Objective: Vital Signs Temp Pulse Resp BP Pulse Ox 36.7 C 78 29 H 155/82 H 92 04/05/17 07:55 04/05/17 07:55 04/05/17 07:55 04/05/17 07:55 04/05/17 07:55 Laboratory Results 04/04/17 05:45 04/05/17 06:20 04/04/17 04/05/17 04/06/17 05:59 05:59 05:59 Intake Total 400 2250 Output Total 900 825 125 Balance -500 1425 -125 PT 15.0 SEC (12.0-15.0) 04/02/17 18:28 INR 1.16 (0.83-1.16) 04/02/17 18:28 Laboratory Results 04/04/17 05:45 04/05/17 06:20 04/05/17 04/04/17 04/04/17 08:18 05:45 05:34 Patient Temperature 37.0 DEGREES DEGREES 36.8 DEGREES DEGREES pCO2 43 mmHg H mmHg 65 mmHg H mmHg (34 - 38) (34 - 38) pO2 65 mmHg mmHg 119 mmHg H mmHg (65 - 75) (65 - 75) Total CO2 30 mEq/L H mEq/L 30 mEq/L H mEq/L (23 - 27) (23 - 27) ABG pH 7.44 7.25 L (7.35 - 7.45) (7.35 - 7.45) ABG PO2/FiO2 Ratio 145 RATIO RATIO ABG HCO3 29 mEq/L H mEq/L 28 mEq/L H mEq/L (22 - 26) (22 - 26) ABG O2 Saturation 93 % % 98 % H % (92 - 95) (92 - 95) ABG Base Excess 4.6 mEq/L H mEq/L -0.5 mEq/L mEq/L (-2.5 - 2.5) (-2.5 - 2.5) O2 Concentration % 82 % % Calcium 8.3 mg/dL L mg/dL (8.5 - 10.4) Total Bilirubin 0.2 mg/dL mg/dL (0.1 - 1.4) AST 32 IU/L IU/L (17 - 59) ALT 56 IU/L IU/L (21 - 72) Alkaline Phosphatase 93 IU/L IU/L (38 - 126) Total Protein 6.4 g/dL g/dL (6.3 - 8.2) Albumin 3.3 g/dL L g/dL (3.5 - 5.0) - Time Spent With Patient Time Spent With Patient: 25 min of time spent with patient, over half involved with coordination of care and counseling Physical Exam - Physical Exam General Appearance: alert, no apparent distress EENT: PERRL/EOMI, normal ENT inspection Neck: non-tender, full range of motion Respiratory: decreased breath sounds, prolonged expiration, No respiratory distress, No wheezing Cardiac/Chest: normal peripheral pulses, regular rate, rhythm, systolic murmur Peripheral Pulses: 2+: carotid (R), carotid (L), femoral (R), femoral (L), dorsalis-pedis (R), dorsalis-pedis (L) Abdomen: normal bowel sounds, non-tender, soft Male Genitalia: deferred Rectal: deferred Skin: normal color, warm/dry Extremities: normal range of motion, non-tender, normal inspection, normal capillary refill Neuro/Psych: no motor/sensory deficits, alert, normal mood/affect, oriented x 3 ICD10 Worksheet Patient Problems: Problems Problem Status Onset Congestive heart failure Acute Encephalopathy Acute Hypercarbia Acute Renal insufficiency Acute Respiratory acidosis Acute Respiratory failure Acute Acute exacerbation of congestive heart failure Acute Cardiomyopathy, dilated Acute Left bundle branch block Acute Syncope Acute TIA (transient ischemic attack) Acute
[2017-04-05] MEDS ORDERED: predniSONE 20 MG TAB PO SCH (09:00)
[2017-04-05] MEDS ORDERED: AZITHROMYCIN 250 MG TAB PO SCH ×2 (09:00)
[2017-04-05] MEDS ORDERED: FUROSEMIDE 40 MG TAB PO SCH (09:00)
[2017-04-05] MEDS: FUROSEMIDE 40 MG TAB PO SCH (09:11)
--- NOTE | 2017-04-05 11:24 | HOSPPROG ---
Hospitalist Progress Note Assessment/Plan: Assessment: 81-year-old male presenting with acute hypercapnic respiratory failure and encephalopathy requiring intubation and mechanical ventilation. Plan: # Acute hypercapnic respiratory failure. Initially, pCO2 >125, required 18 hrs of bipap, pCO2 now 48. pH 6.87 --> 7.44, clinically improved, on 3 LPM. - cont COPD management as below - needs outpt sleep study and possibly home bipap # COPD exacerbation. -change to po prednisone -did not use bipap last night and pCO2 much improved today # Chronic nonischemic cardiomyopathy. Previous EF 25%, recently improved to 35% - resume BB, marge # ? systolic congestive heart failure exacerbation. Recent ejection fraction 35% 02/2017, interstitial infiltrates [place] [address] -changed to oral lasix -dc figueroa -follow I&O's, daily weights # Elevated trop. Trop uche to 0.6 yesterday, now down-trending. ?Strain given above. CP free. - check lipid status # Acute metabolic encephalopathy. Likely CO2 encephalopathy, improved. # Acute kidney injury on chronic kidney disease stage 3. Cr 2.3 --> 1.1 # Hyperkalemia. Improved. # Hypernatremia. Suspect related to free water loss with IV Lasix. Resolved since stopping IV Lasix - follow # Tobacco abuse - nicoderm # Alcohol use - has 2 drinks per night - agreed to 1 glass of wine daily Diet. regular Prophylaxis. High risk patient, heparin subcu Code. Do not resuscitate, do not intubate, confirmed with patient Disposition. cont inpt, transfer to med/surg, possible d/c 1-2 days Subjective: Pt feels much better. No CP or SOB. Breathing much improved. No fevers. Objective: Vital Signs Temp Pulse Resp BP Pulse Ox 36.7 C 69 26 H 155/82 H 89 L 04/05/17 07:55 04/05/17 11:04 04/05/17 11:04 04/05/17 07:55 04/05/17 11:04 Laboratory Results 04/04/17 05:45 04/05/17 06:20 04/04/17 04/05/17 04/06/17 05:59 05:59 05:59 Intake Total 400 2250 Output Total 900 825 125 Balance -500 1425 -125 PT 15.0 SEC (12.0-15.0) 04/02/17 18:28 INR 1.16 (0.83-1.16) 04/02/17 18:28 - Physical Exam Constitutional: no apparent distress Eyes: PERRL Ears, Nose, Mouth, Throat: moist mucous membranes Cardiovascular: regular rate and rhythym Respiratory: no respiratory distress, reduced air movement Gastrointestinal: normoactive bowel sounds, soft, non-tender abdomen Skin: warm Musculoskeletal: full muscle strength Neurologic: AAOx3 Psychiatric: interacting appropriately ICD10 Worksheet Patient Problems: Problems Problem Status Onset Congestive heart failure Acute Encephalopathy Acute Hypercarbia Acute Renal insufficiency Acute Respiratory acidosis Acute Respiratory failure Acute Acute exacerbation of congestive heart failure Acute Cardiomyopathy, dilated Acute Left bundle branch block Acute Syncope Acute TIA (transient ischemic attack) Acute
[2017-04-05] MEDS: RED WINE 120 ML BOTTLE PO SCH (17:00)
[2017-04-05] MEDS ORDERED: MELATONIN 3 MG TAB PO PRN (20:49)
[2017-04-06 02:29] LABS: CHOLESTEROL 108 mg/dL (140-220); CHOLESTEROL/HDL RATIO 2.84 RATIO (1.00-4.97); HIGH DENSITY LIPOPROTEIN 38 mg/dL (40-65); LDL/HDL RATIO 1.55 RATIO (1.00-3.64); LOW DENSITY LIPOPROTEIN 59 mg/dL (80-100); NON-HIGH DENSITY LIPOPROTEIN 70 mg/dL (90-129); TRIGLYCERIDE 58 mg/dL (40-150); VERY LOW DENSITY LIPOPROTEINS 11 mg/dL (8-25)
[2017-04-06] MEDS: IPRATROPIUM/ALBUTEROL 3 ML DEYVIAL IH SCH ×2 (05:19→11:36)
[2017-04-06] MEDS: HEPARIN 5,000 UNIT/0.5 ML SYR SC SCH (05:36)
[2017-04-06 08:00] VITALS: BP 141/75; TEMP 98.1; O2SAT 92
[2017-04-06] MEDS: FUROSEMIDE 40 MG TAB PO SCH (08:47)
[2017-04-06] MEDS: ASPIRIN 81 MG CHEWABLE TAB PO SCH (08:48)
[2017-04-06] MEDS: PANTOPRAZOLE SODIUM 40 MG TAB PO SCH (08:48)
[2017-04-06] MEDS: predniSONE 20 MG TAB PO SCH (08:48)
[2017-04-06] MEDS: CARVEDILOL 3.125 MG TAB PO SCH (08:48)
[2017-04-06] MEDS: NICOTINE 7 MG/24 HR PATCH TD SCH (09:29)
[2017-04-06 10:43] LABS: ANION GAP 10 mEq/L (8-16); CALCIUM 8.7 mg/dL (8.5-10.4); CARBON DIOXIDE 31 mEq/l (22-31); CHLORIDE 100 mEq/L (97-110); GLOMERULAR FILTRATION RATE > 60; GLUCOSE 117 mg/dL (70-100); POTASSIUM 4.6 mEq/L (3.5-5.2); SODIUM 141 mEq/L (134-144)
--- NOTE | 2017-04-06 11:03 | SOAPPROG ---
SOAP Progress Note Assessment/Plan: Assessment/plan: * Hypercarbic respiratory failure-resolved * Chronic obstructive pulmonary disease-improved -continue oral prednisone-taper over 2 weeks -continue nebulized treatments * Left bundle branch block * Hypertension-controlled * Degenerative joint disease * Probable alcoholism * Disposition-okay for discharge home from a pulmonary standpoint. Have him follow up in my office in a few weeks. Subjective: Up walking with physical therapy. Comfortable. Wishes to go home. Denies any dyspnea. Objective: Vital Signs Temp Pulse Resp BP Pulse Ox 36.7 C 69 22 H 141/75 H 92 04/06/17 07:38 04/06/17 07:38 04/06/17 07:38 04/06/17 07:38 04/06/17 07:38 Laboratory Results 04/04/17 05:45 04/06/17 10:10 04/05/17 04/06/17 04/07/17 05:59 05:59 05:59 Intake Total 2250 1830 700 Output Total 825 1225 500 Balance 1425 605 200 PT 15.0 SEC (12.0-15.0) 04/02/17 18:28 INR 1.16 (0.83-1.16) 04/02/17 18:28 - Time Spent With Patient Time Spent With Patient: 25 min of time spent with patient, more than 1/2 involved with coordination of care or counseling Physical Exam - Physical Exam General Appearance: WD/WN, alert, no apparent distress EENT: PERRL/EOMI, normal ENT inspection Neck: non-tender, full range of motion, supple, normal inspection Respiratory: prolonged expiration, No respiratory distress, No wheezing Cardiac/Chest: normal peripheral pulses, regular rate, rhythm Peripheral Pulses: 2+: carotid (R), carotid (L), femoral (R), femoral (L), dorsalis-pedis (R), dorsalis-pedis (L) Abdomen: normal bowel sounds, non-tender, soft Male Genitalia: deferred Rectal: deferred Skin: normal color, warm/dry Neuro/Psych: no motor/sensory deficits, alert, normal mood/affect, oriented x 3 ICD10 Worksheet Patient Problems: Problems Problem Status Onset Congestive heart failure Acute Encephalopathy Acute Hypercarbia Acute Renal insufficiency Acute Respiratory acidosis Acute Respiratory failure Acute Acute exacerbation of congestive heart failure Acute Cardiomyopathy, dilated Acute Left bundle branch block Acute Syncope Acute TIA (transient ischemic attack) Acute
[2017-04-06 11:48] VITALS: PULSE 81; RESP 18
--- NOTE | 2017-04-06 12:36 | GDS ---
[f rep st] DISCHARGE SUMMARY DISCHARGE DIAGNOSES: 1. Acute hypoxic respiratory failure. 2. Chronic obstructive pulmonary disease exacerbation. 3. Chronic obstructive pulmonary disease. 4. Decompensated diastolic heart failure. 5. Nonischemic cardiomyopathy disease with ejection fraction 25%. 6. Left bundle branch block. 7. Peptic ulcer disease. 8. History of prostate cancer status post radiotherapy. 9. Tobacco abuse. 10. Hypertension. 11. Alcohol dependence. 12. Acute hypercapnic respiratory failure. 13. Elevated troponin. 14. Acute metabolic encephalopathy. 15. Acute kidney injury. 16. Hyperkalemia. 17. Hyponatremia. HISTORY OF PRESENT ILLNESS: An 81-year-old male with history of alcoholism, diastolic heart failure, left bundle branch, who was recently hospitalized for heart failure exacerbation, presented to the ER initially thought to have stroke. Blood gas showed a pCO2 of 125, and pH of 7.86. He was admitted to the ICU and placed on BiPAP. He was DNR per his family and they initially opted for comfort care. However, patient's respiratory status improved. HOSPITAL COURSE BY PROBLEM: 1. Acute hypercapnic respiratory failure: Again, pCO2 was elevated at 120. This improved with BiPAP. This was likely secondary to COPD exacerbation. He is currently stable on 2 L. We will continue prednisone. He should follow up with Dr. Tubbs in 2-3 weeks. 2. Acute metabolic encephalopathy: This is secondary to hypercapnia. This has since resolved. He is now alert and oriented x3. 3. Acutely decompensated systolic heart failure: He has diuresed well here. Creatinine is now stable. He may resume his home dose of Lasix 40 mg. Continue Coreg and losartan 25 mg for which I provided scripts. 4. Acute kidney injury. Creatinine was as high as 2.3, is now 1 today. I advised son to avoid NSAIDs at home given on Lasix and losartan. 5. Indeterminate troponin. Heart failure exacerbation. He denies any chest pain. No further ischemic evaluation warranted at this time. 6. Alcoholism. No evidence of withdrawal here. He was counseled on cessation. 7. Hyperkalemia. This is resolved. Will need to monitor closely on losartan and Lasix. 8. Hyponatremia. Resolved after stopping IV Lasix. 9. Tobacco abuse. Nicotine patch. DISPOSITION: The patient is stable for discharge home with his son, who lives upstairs. Patient declined any home care services, though recommended. NEW MEDICATIONS: 1. Prednisone 40 mg daily for 2 days. 2. Levaquin 750 two daily. 3. Losartan 25 mg daily. FOLLOWUP: 1. Dr. Florence. 2. Dr. uTbbs. PHYSICAL EXAM: VITAL SIGNS: Today, temperature 36.7, blood pressure 141/75, heart rate 60s, respirations 22, 92% on room air. GENERAL: Well appearing male sitting up in bed, no acute distress. HEENT: PERRLA. EOMI. Oropharynx clear. CV: Regular rate and rhythm. Trace pedal edema. LUNGS: Clear. Diminished. No crackles. ABDOMEN: Soft, nontender, nondistended. Positive bowel sounds. : No Schneider. MUSCULOSKELETAL: 5/5 upper and lower extremity strength. NEURO: 2 through 12 intact. PSYCH: Alert and oriented x3. Time spent on DC > 35 min discussing meds with his son and coordinating discharge. /[id number]/MODL [id number]
[2017-04-07 11:10] LABS: PCO2 81 mmHg (34-38)
== END 2017-04-06 13:36 | disposition home or self-care (01) | DRG 189 ==
LOC: EDUNIT# → F2N 22:35 → F3N 04-05 18:29
PROVIDERS: ADMIT Internal Medicine; ATTEND Internal Medicine
PROC: 5A09357 Assistance with Respiratory Ventilation, Less than 24 Consecutive Hours, Continuous Positive Airway Pressure (ICD-10-PCS; principal; 2017-04-02)
DX: J96.00 Acute respiratory failure, unspecified whether with hypoxia or hypercapnia (principal); J96.01 Acute respiratory failure with hypoxia; G93.41 Metabolic encephalopathy; J44.1 Chronic obstructive pulmonary disease with (acute) exacerbation; I42.9 Cardiomyopathy, unspecified; I50.33 Acute on chronic diastolic (congestive) heart failure; I44.7 Left bundle-branch block, unspecified; F10.220 Alcohol dependence with intoxication, uncomplicated; F17.210 Nicotine dependence, cigarettes, uncomplicated; I12.9 Hypertensive chronic kidney disease with stage 1 through stage 4 chronic kidney disease, or unspecified chronic kidney disease; N18.3 Chronic kidney disease, stage 3 (moderate); N17.9 Acute kidney failure, unspecified; E87.5 Hyperkalemia; E87.0 Hyperosmolality and hypernatremia; M19.91 Primary osteoarthritis, unspecified site; Z85.46 Personal history of malignant neoplasm of prostate; Z92.3 Personal history of irradiation; Z66 Do not resuscitate; Z86.73 Personal history of transient ischemic attack (TIA), and cerebral infarction without residual deficits
CPT/HCPCS: 82947-QW; 92526-GN; 92610-GN; 96365; 96366; 97116-GP; 97161-GP; 97165-GO; 97530-GP; 97535-GO; G0480; J0456; J0696; J1630; J1940; J2405; J2930; Q9967